=== PATIENT | female | born 1955 | race Caucasian/White ===

== ENCOUNTER 2019-12-02 19:32 | Emergency (ER) | payer OTHER ==
[~2019-12-02] VITALS: Ht 157.5 cm; Wt 101.6 kg
--- OUTSIDE RECORDS SUMMARY | ~2019-12-02 | XMS | Encounter Summary ---
Demographics + + + | Address | [address] | | | [place] [address] | + + + | Home Phone | | + + + | Preferred Language | Unknown | + + + | Marital Status | Single | + + + | Shinto Affiliation | NON | + + + | Race | White | + + + | Ethnic Group | Not or | + + + Author + + + | Author | [facility] | + + + | Organization | [facility] | + + + | Address | Unknown | + + + | Phone | Unavailable | + + + Support + + + + + | Name | Relationship | Address | Phone | + + + + + | Adeel Matthews | ECON | [address] | | | | | [place] | | | | | [address] | | + + + + + Care Team Providers + +------+ + | Care Manager Field Name | Role | Phone | + +------+ + PCP | Unavailable | + +------+ + Encounter Details +--------+ + + + + | Date | Type | Department | Care Team | Description | +--------+ + + + + | 05/05/ | Office | Pulmonary & | Kenzie Sevilla, | | | 2006 | Visit-[facility] | Critical Care | MD | | | | | Medicine at | | | | | | [facility] | | | | | | [address] | | | | | | [address] [facility] | | | | | [facility], [address] Floor | | | | | | [place], [place] | | | | | | [address] | | | | | | [phone] | | | +--------+ + + + + Social History + +-------+ +--------+------+ | Tobacco Use | Types | Packs/Day | Years | Date | | | | | Used | | + +-------+ +--------+------+ | Never Assessed | | | | | + +-------+ +--------+------+ + + + | Sex Assigned at | Date Recorded | | | | + + + | Not on file | | + + + + + + + | Job Start Date | Occupation | Industry | + + + + | Not on file | Not on file | Not on file | + + + + + + + + | Travel History | Travel Start | Travel End | + + + + + + | No recent travel history available. | + + documented as of this encounter Plan of Treatment Not on filedocumented as of this encounter Visit Diagnoses Not on filedocumented in this encounter"
--- OUTSIDE RECORDS SUMMARY | ~2019-12-02 | XMS | Encounter Summary ---
Demographics + + + | Address | [address] | | | [place] [address] | + + + | Home Phone | | + + + | Preferred Language | Unknown | + + + | Marital Status | Single | + + + | Caodaism Affiliation | NON | + + + | Race | White | + + + | Ethnic Group | Not or | + + + Author + + + | Author | [facility] | + + + | Organization | [facility] | + + + | Address | Unknown | + + + | Phone | Unavailable | + + + Support + + + + + | Name | Relationship | Address | Phone | + + + + + | Adeel Matthews | ECON | [address] | | | | | [place] | | | | | [address] | | + + + + + Care Team Providers + +------+ + | Care Laborer Car [place] Name | Role | Phone | + +------+ + PCP | Unavailable | + +------+ + Encounter Details +--------+ + + + + | Date | Type | Department | Care Team | Description | +--------+ + + + + | 05/04/ | Respiratory | Respiratory | Flavia Watt | | | 2006 | Therapy | Therapy [address] [facility] | [phone] | | | | | [address] | | | | | | Mailcode: [id number] | | | | | | [place], [place] | | | | | | [address] | | | | | | [phone] | | | +--------+ + + + [...] Not on filedocumented as of this encounter Procedures + +--------+ + + + | Procedure Name | Priori | Date/Time | Associated Diagnosis | Comments | | | ty | | | | + +--------+ + + + | PULMONARY FUNCTION | Routin | 05/04/2007 | | Results for this | | | e | 3:10 PM | | procedure are in the | | | | PDT | | results section. | + +--------+ + + + documented in this encounter Results RESP CARE PULMONARY FUNCTION (05/04/2007 3:10 PM PDT) + + + + + + | Component | Value | Ref Range | Performed | Pathologist | | | | | At | Signature | + + + + + + | PULMONARY | Spirometry, and DLCO | | [facility] | | | FUNCTION | were | | RESPIRATORY | | | | performed:Spirometry | | THERAPY | | | | results were the | | | | | | following:FVC=3.19FVC% | | | | | | predicted=21UOU7=6.55FEV | | | | | | 1% | | | | | | predicted=98FEV1/FVC=80F | | | | | | EF 25-75=2.56FEF 25-75% | | | | | | predicted=97PEF=5.52PEF% | | | | | | predicted=86DLCO | | | | | | results were the | | | | | | following:Dsb=21.9 | | | | | | ml/min/mmHgDsb% | | | | | | psbmnmahm=374P/VA=4.53D/ | | | | | | VA% predicted=91VA (sb) | | | | | | (L)=4.84VA (sb) (L)% | | | | | | hrzouqpuk=964Pppulbvz | | | | | | for Hb of 14.1 | | | | | | gm/dL.Electronically | | | | | | Signed by: Melissa Malik, | | | | | | VP RESPIRATORY | | | | + + + + + + + + | Specimen | + + | | + + + + + | Narrative | Performed At | + + + | Ordered by an unspecified provider. | [facility] | | | RESPIRATORY | | | THERAPY | + + + + + + + + | Performing | Address | City/State/Zipcode | Phone Number | | Organization | | | | + + + + + | [facility] | [address] | [place], [place] | | | THERAPY | [address] | [address] | | + + + + + | [facility] | [address] | [place], [place] | | | THERAPY | [address] | [address] | | + + + + + documented in this encounter Visit Diagnoses Not on filedocumented in this encounter"
--- OUTSIDE RECORDS SUMMARY | ~2019-12-02 | XMS | Encounter Summary ---
Demographics + + + | Address | [address] | | | [place] [address] | + + + | Home Phone | | + + + | Preferred Language | Unknown | + + + | Marital Status | Single | + + + | Yarsani Affiliation | NON | + + + | Race | White | + + + | Ethnic Group | Not or | + + + Author + + + | Author | [facility] | + + + | Organization | [facility] | + + + | Address | Unknown | + + + | Phone | Unavailable | + + + Support + + + + + | Name | Relationship | Address | Phone | + + + + + | Adeel Matthews | ECON | [address] | | | | | [place] | | | | | [address] | | + + + + + Care Team Providers + +------+ + | Care Groundman Name | Role | Phone | + +------+ + | Froy Daigle MD | PCP | | + +------+ + Encounter Details +--------+ + + + + | Date | Type | Department | Care Team | Description | +--------+ + + + + | 02/03/ | Ancillary | Registration [address] | Kamilah Marte, | | | 2006 | Registratio | [address] Verduz[address] MD | | | | n | [address] Mailcode: [id number] | | | | | | [place], [place] | | | | | | [address] | | | | | | [phone] | | | +--------+ + + + [...]
--- OUTSIDE RECORDS SUMMARY | ~2019-12-02 | XMS | Encounter Summary ---
Demographics + + + | Address | [address] | | | [place] [address] | + + + | Home Phone | | + + + | Preferred Language | Unknown | + + + | Marital Status | Single | + + + | Taoism Affiliation | NON | + + + | Race | White | + + + | Ethnic Group | Not or | + + + Author + + + | Author | [facility] | + + + | Organization | [facility] | + + + | Address | Unknown | + + + | Phone | Unavailable | + + + Support + + + + + | Name | Relationship | Address | Phone | + + + + + | Adeel Matthews | ECON | [address] | | | | | [place] | | | | | [address] | | + + + + + Care Team Providers + +------+ + | Care Health Care Social Worker Name | Role | Phone | + +------+ + PCP | Unavailable | + +------+ + Encounter Details +--------+ + + + + | Date | Type | Department | Care Team | Description | +--------+ + + + + | 07/08/ | Results | Registration [address] | Flavia Watt | | | 2005 | Only | [address] | [phone] | | | | | Rd Mailcode: [id number] | | | | | | [place], [place] | | | | | | [address] | | | | | | [phone] | | | +--------+ + + + [...] as of this encounter Plan of Treatment + +---------+--------+ + + | Name | Type | Priori | Associated Diagnoses | Date/Time | | | | ty | | | + +---------+--------+ + + | CT OUTSIDE FILMS | Imaging | Routin | | 07/08/2006 12:00 AM | | | | e | | PST | + +---------+--------+ + + | GENERAL OUTSIDE | Imaging | Routin | | 07/08/2006 12:00 AM | | FILMS | | e | | PST | + +---------+--------+ + + documented as of this encounter Visit Diagnoses Not on filedocumented in this encounter"
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
--- OUTSIDE RECORDS SUMMARY | ~2019-12-02 | XMS | Encounter Summary ---
Demographics + + + | Address | [address] | | | [place] [address] | + + + | Home Phone | | + + + | Preferred Language | Unknown | + + + | Marital Status | Legally | + + + | Restorationism Affiliation | Unknown | + + + | Race | Unknown | + + + | Ethnic Group | Unknown | + + + Author + + + | Author | [facility] | | | and [place]ana | + + + | Organization | [facility] | | | and Mattana | [...] Team Providers + +------+ + | Care Hot Strip Mill Supervisor Name | Role | Phone | + [...] + | 08/25/ | Office | [facility] | Bismark Osorio | SANTOS (obstructive | | 2012 | Visit | SLEEP DISORDER [address] | MD [address] | sleep apnea) | | | | [address] [place] [address] [place] | (Primary Dx); | | | | [place] [address] | [place] [address] | Delayed sleep phase | | | | [phone] | [phone] | syndrome; REM sleep | | | | | | behavior disorder; | | | | | | Bipolar 1 disorder | | | | | | ([facility]); Excessive | | | | | | sleepiness; Obesity; | | | | | | Rheumatoid | | | | | | arthritis ([facility]); | | | | | | Multiple [...] located on the 1st level of the [facility]. Please park in the Cancer Center/Sleep Center Parking Lot located on the Southwest corner of the [facility], at [address]. Please enter through the glass sliding doors [...] differen t from the original. [facility] [place] [address] Ref: Christopher Finn MD CC: Chief Complaint [...] Concern None Social History Narrative Born in [facility].Lives in [place] in apartment that is safe and quiet. [...] Insomnia Severity Index Insomnia Severity Index 24 [place] Sleepiness Scale Sitting and reading 3 Watching [...]
--- OUTSIDE RECORDS SUMMARY | ~2019-12-02 | XMS | Encounter Summary ---
Demographics + + + | Address | [address] | | | [place] [address] | + + + | Home Phone | | + + + | Preferred Language | Unknown | + + + | Marital Status | Legally | + + + | Confucianism Affiliation | Unknown | + + + | Race | Unknown | + + + | Ethnic Group | Unknown | + + + Author + + + | Author | [facility] | | | and Mattana | + + + | Organization | [facility] | | | and Mattana [...] Team Providers + +------+ + | Care Sheet Rock Installation Helper Name | Role | Phone | + +------+ + PCP | Unavailable | + +------+ + Encounter Details +--------+ + + + + | Date | Type | Department | Care Team | Description | +--------+ + + + + | 06/25/ | Hospital | [facility] | Christopher Finn | | | 2011 - | Encounter | MED CTR XRAY [address] | [place] [address] | | | | | [place] | [address] [place], [place] | | | 06/27/ | | [place] [address] | [address] | | | 2011 | | [phone] | | | +--------+ + + + [...] + + documented as of this encounter Medications at Time of Discharge + + + +---------+ + + | Medication | Sig | Dispensed | Refills | Start | End Date | | | | | | Date | | + + + +---------+ + + | meloxicam (MOBIC) | Take 15 mg by mouth. | | 0 | 04/24/20 | | | 15 mg tablet | | | | 12 | | + + + +---------+ + + | meloxicam (MOBIC) | Take 15 mg by mouth | | 0 | 04/24/20 | | | 15 mg tablet | Daily. | | | 12 | | + + + +---------+ + + | aspirin 325 mg | Take 325 mg by mouth | | 0 | 04/24/20 | | | tablet | Daily. | | | 12 | 3 | + + + +---------+ + + | famotidine | Take 20 mg by mouth | | 0 | 04/24/20 | | | (PEPCID) 20 mg | 2 times daily. | | | 12 | 3 | | tablet | | | | | | + + + +---------+ + + | levothyroxine | Take 50 mcg by mouth | | 0 | 04/24/20 | | | (SYNTHROID, | Daily. | | | 12 | 3 | | LEVOTHROID) 50 mcg | | | | | | | tablet | | | | | | + + + +---------+ + + | metoprolol | Take 25 mg by mouth | | 0 | 09/05/19 | | | tartrate (LOPRESSOR) | Daily. | | | 11 | 3 | | 25 mg tablet | | | | | | + + + +---------+ + + | PARoxetine (PAXIL) | Take 20 mg by mouth | | 0 | 04/24/20 | | | 20 mg tablet | Daily. | | | 12 | 3 | + + + +---------+ + + | Potassium Chloride | CR-TABS | | 0 | 04/24/20 | | | (KLOR-CON 10 PO) | | | | 12 | 3 | + + + +---------+ + + | trazodone | Take half a tablet | | 0 | 04/24/20 | | | (DESYREL) 150 MG | by mouth twice | | | 12 | 3 | | tablet | daily. | | | | | + + + +---------+ + + documented as of this encounter Plan of Treatment Not on filedocumented as of this encounter Procedures + +--------+ + + + | Procedure Name | Priori | Date/Time | Associated Diagnosis | Comments | | | ty | | | | + +--------+ + + + | CT CHEST W CONTRAST | Routin | 06/26/2012 | | Results for this | | | e | 12:47 PM | | procedure are in the | | | | PST | | results section. | + +--------+ + + + documented in this encounter Results CT Chest w Contrast (06/26/2012 12:47 PM PST) + + | Specimen | + + | | + + + + + | Narrative | Performed At | + + + | [facility] | [place] | | Department [address] [facility] | | [ rep [address]] [ rep [facility] | | st zip] Signed | - IMAGING | | | | | Patient Name: KATHY MOYA Physician: | | | TERR.20 : 1955 Age: 57 Sex: F Unit #: [id number] | | | Exam Date: 06/25/12 Location: [facility] | | | Report #: [id number] Page: | | | %(RAD)RES..mtdd.print.filter("pg") of %(RAD) | | | RES..mtdd.print.filter("tpg") | | | | | | Accession Number: [id number] | | | CT SCAN OF THE CHEST, 06/26/2012 CLINICAL HISTORY: PREVIOUS | | | CHEST X-RAY DEMONSTRATED RIGHT LUNG NODULE, SMOKER. | | | COMPARISON: Previous chest x-rays from 01/13/2011 and 11/21/2010. | | | PROTOCOL: Axial CT images of the chest after intravenous | | | contrast. FINDINGS: Neck base is normal. | | | There is mild emphysema involving the bilateral lungs. No nodule is | | | seen in the bilateral lungs. The heart is of normal size. | | | Minimal coronary artery calcifications are seen. There is minimal | | | atherosclerosis of the aorta. The pulmonary arteries and SVC are | | | unremarkable. There is a moderately prominent lymph node in | | | the paratracheal region that measures 0.9 cm. A moderately enlarged | | | 1.2 cm lymph node is present in the right precarinal region. The dane | | | and axilla are normal. The trachea and esophagus are normal. | | | There are no acute osseous abnormalities. Small osteophytes are | | | present at multiple levels of the thoracic spine. | | | Cholecystectomy clips are visualized. IMPRESSION: 1. | | | MILD EMPHYSEMA OF THE BILATERAL LUNGS. NO OBVIOUS LUNG NODULES ARE | | | SEEN. ATTEMPT WILL BE MADE TO OBTAIN THE PATIENT'S PREVIOUS CHEST | | | X-RAY THAT DEMONSTRATED THE NODULE. AT THAT TIME, AN ADDENDUM WILL | | | BE MADE. 2. BORDERLINE LYMPH NODES INVOLVING THE | | | MEDIASTINUM, NONSPECIFIC. COMMENT: This information was | | | conveyed to the office of Dr. Christopher Finn. | | | <<Signature on File>> | | | Aakash | | | MD Ronen06/27/12 0150 <Electronically signed by Aakash Hardwick MD> | | | Aakash Hardwick MD 06/26/12 1247 Boat Crew Deck Hand: | | | Adrianne Nguyen06/26/12 1308 Christopher Finn MD | | | | | + + + + + + + + | Performing | Address | City/State/Zipcode | Phone Number | | Organization | | | | + + + + + | [facility] | [address] | [place] | [phone] | | [facility] | | [address] | | | - IMAGING | | | | + + + + + documented in this encounter Visit Diagnoses Not on filedocumented in this encounter
--- OUTSIDE RECORDS SUMMARY | ~2019-12-02 | XMS | Encounter Summary ---
Demographics + + + | Address | [address] | | | [place] [address] | + + + | Home Phone | | + + + | Preferred Language | Unknown | + + + | Marital Status | Legally | + + + | Episcopal Affiliation | Unknown | + + + | Race | Unknown | + + + | Ethnic Group | Unknown | + + + Author + + + | Author | [facility] | | | and [place] | + + + | Organization | [facility] | | | and [place] [...] Team Providers + +------+ + | Care Plastics Repairer Name | Role | Phone | + +------+ + | Froy Daigle | PCP | | | MD | | | + +------+ + Reason for Visit +--------+ + | Reason | Comments | +--------+ + | Apnea | | +--------+ + Encounter Details +--------+---------+ + + + | Date | Type | Department | Care Team | Description | +--------+---------+ + + + | 12/14/ | Office | [facility] | Chris Guallpa PA | SANTOS on CPAP (Primary | | 2014 | Visit | SLEEP DISORDER [address] | [address] | Dx) | | | | [address] | [place] | | | | | [place] [address] | [address] | | | | | [phone] | | | +--------+---------+ + + + Social History [...] + + + | Blood Pressure | 102/76 | 12/14/2013 10:24 AM | | | | | PDT | | + + + + + | Pulse | 89 | 12/14/2013 10:24 AM | | | | | PDT | | + + + + + | Temperature | - | - | | + + + + + | Respiratory Rate | 16 | 12/14/2013 10:24 AM | | | | | PDT | | + + + + + | Oxygen Saturation | 99% | 12/14/2013 10:24 AM | | | | | PDT | | + + + + + | Inhaled Oxygen | - | - | | | Concentration | | | | + + + + + | Weight | 114.3 kg (252 lb) | 12/14/2013 10:24 AM | | | | | PDT | | + + + + + | Height | - | - | | + + + + + | Body Mass Index | 44.64 | 08/25/2012 1:53 PM | | | | | PST | | + + + + + documented in this encounter Progress Notes Vee Dowling, Master of Arts - 12/14/2013 10:22 AM PDTFormatting of this note might be di fferent from the original. 12/14/13 1000 Bryant Depression Inventory-II Depression Score 3 - Minimal depression Insomnia Severity Index Insomnia Severity Index 4 [place] Sleepiness Scale Sitting and reading 1 Watching TV 1 Sitting, inactive in a public place (e.g. a theatre or a meeting) 1 As a passenger in a car for an hour without a break 0 Lying down to rest in the afternoon when circumstances permit 2 Sitting and talking to someone 0 Sitting quietly after a lunch without alcohol 1 In a car, while stopped for a few minutes in traffic 0 Total score 6 SF-36v2 Score PF 42.3 RP 49.51 BP 51.13 GH 48.17 VT 55.21 SF 45.94 RE 55.88 MH 50.01 PCS 45.51 MCS 54.44 Chris Billingsley PA - 10:06 AM PDT Subjective: Patient ID: Kathy Moya is a 58 y.o. female. HPI last office visit was: 12/01/2012 date of polysomnography: 09/17/2012 AHI: 14.0 RDI: 16.6 O2%: 76% with 11.7 minutes below 88% Machine type: Respironics REMstar Pro with C flex with nasal pillows obtained from: [facility] [place] pressure is: 5-15 cm 95%: cm maxium: cm CPAP download shows CPAP useage # nights: average usage (all nights): 10:08 average usage (nights used): 10:08 AHI: n/a Kathy comes in for CPAP compliance. She is doing very well with her compliance. She yaakov nues to feels much more rested and has noticed that she has had more energy during the day. Her only concern is that she has not replaced any of her equipment because her insurance do es not cover durable medical equipment. She says that her mask needs to be replaced and she is hopeful her insurance will now cover a new mask. I have discussed the download and results of the paperwork in detail. She has improved in all categories, with no areas of concern. The download confirms that she is wearing it nigh tly. Review of Systems Objective: Physical Exam Assessment: Problem #1: OBSTRUCTIVE SLEEP APNEA (327.23) This is well controlled with CPAP. Her CPAP compliance is going well. Plan: She is to continue with CPAP indefinitely. I have recommended that she touch base with her medical supplier twice per year to ensure that her equipment is satisfactory. I will follow up again in 1 year, sooner prn. At that time we will reassess with all appro piate paperwork. Fifteen minutes were spent [id number], with the majority of time spent i n counseling. Chris Guallpa PA-C cc: Dr. Yuridia Finn documented in this enco unter Plan of Treatment Not on filedocumented as of this encounter Visit Diagnoses + + | Diagnosis | + + | SANTOS on CPAP - Primary Obstructive sleep apnea (adult) (pediatric) | + + documented in this encounter"
--- OUTSIDE RECORDS SUMMARY | ~2019-12-02 | XMS | Encounter Summary ---
Demographics + + + | Address | [address] | | | [place] [address] | + + + | Home Phone | | + + + | Preferred Language | Unknown | + + + | Marital Status | Single | + + + | Yazdanism Affiliation | NON | + + + | Race | White | + + + | Ethnic Group | Not or | + + + Author + + + | Author | [facility] | + + + | Organization | [facility] | + + + | Address | Unknown | + + + | Phone | Unavailable | + + + Support + + + + + | Name | Relationship | Address | Phone | + + + + + | Adeel Matthews | ECON | [address] | | | | | [place] | | | | | [address] | | + + + + + Care Team Providers + +------+ + | Care Ivory Carver Name | Role | Phone | + +------+ + PCP | Unavailable | + +------+ + Encounter Details +--------+ + + + + | Date | Type | Department | Care Team | Description | +--------+ + + + + | 10/17/ | Office | Allergy Clinic at | Report, Outpatient | Progress Note | | 2006 | Visit-Trans | [facility] [address] | Consultation | | | | [place] | Eugene Maldonado | | | | | | Darin Lugo | | | | | | [facility], [address] [place] [address] | | | | | | [place], [place] | | | | | | [address] | | | | | | [phone] | | | +--------+ + + + [...] + + documented as of this encounter Progress Notes Interface, Dial Maker In - 11/18/2006 2:33 AM PDT [id number] NITA Blair [id number] Referred From and Faxed To: Froy Daigle M.D. Referred To: Akbar Mendoza M.D. Consulting Physician: Akbar Mendoza M.D. Consultation Date: 10/17/2006 Referring Physician: Froy Daigle M.D. Pulmonary Clinic Consult Note Reason For Requested Consultation: Pulmonary nodule. History of Present Illness: Kathy Moya is a 51-year-old woman referred from [place], [place], for evaluation of a cavitating right upper lobe lung nodule. She presented to the [facility] in June 2006 with pleuritic left-sided chest pain and underwent a CT angio of the chest which was negative for pulmonary embolism but was found to have a 1.4 cm x 1.7 cm round nodule in the right upper lobe posterior segment with presence of cavitation. Additionally, there was presence of contralateral aorticopulmonary window adenopathy measuring 2.5 cm x 2.1 cm. Since then her evaluation has included a 3 sputum cultures which have been insufficient, and she was subsequently referred here for further evaluation. She denies symptoms of persistent chest pain. She states that she has no exertional dyspnea, no exertional chest pain, and that the pain that she initially had has resolved after she started taking Pepcid. Additionally, she denies cough, sputum production, or hemoptysis. When she attempted to produce sputum for the samples, she only produced saliva. She was treated in early July 2006 with 10 days of levofloxacin. Her only symptoms following this has been anxiety associated with the possibility of a malignant diagnosis. Notably, she does not have presence of any night sweats. She has not lost any weight. She denies any lower extremity edema. She denies any rashes. She denies any joint pain. She does not have any nausea, vomiting, or diarrhea. Past Medical History: 1. Hysterectomy for cervical cancer. No prior radiation. No prior chemotherapy. Cervix was completely removed and has not had any Pap smears. Additionally, had bilateral salpingo-oophorectomy in a second operation following the hysterectomy. 2. Cholecystectomy. 3. Knee arthroscopy. 4. Possible venous thrombosis, never previously on warfarin. 5. Possible TB exposure. She defined as exposure to a young man in a basement apartment in the same apartment complex she was living in [place], [place], who had tuberculosis. 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 Her chest x-rays during that time were all reportedly negative. Medications: 1. Aspirin 81 mg, started since July 08, 2006. 2. Pepcid. 3. RapidSlim. Allergies: 1. PENICILLIN WHICH CAUSES A RASH AND ANAPHYLAXIS WHICH SHE HAD A CHILD. 2. CODEINE WHICH CAUSES NAUSEA AND VOMITING. 3. NOVOCAIN, UNKNOWN REACTION. Social History: She was born in [place]. She subsequently lived in [facility] and [place] and [place], [place]. Additionally, she spent time in [place], [place] in [facility] for several months. Exposure: Tuberculosis exposure as described above, denies any IV drug use ever, did smoke marijuana in the past but has not for 30 years, never been in shelter. She does have a brother who has been involved with methamphetamine production and IV drug use who she has seen recently but has not lived with. There is no travel outside the country. There is no exposure to any immigrants in her living environment. She started smoking at age 15. She now takes 4 days to complete a pack of cigarettes. She has quit in the past in early 1970s. She denies any alcohol use, denies any other drug use. She currently lives with her mom, step dad, and a boyfriend in a house in [place]. Family History: Mother with thyroid cancer at age 62, father who is healthy. She has 15 siblings. There are no history of malignancies, cardiovascular disease, or inflammatory bowel disease. She has 2 sons one who lives in [place] and one who lives in [place]. 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 She is not currently working. Review of Systems: All other systems are negative except as described above. Physical Examination: Temperature 98.8, blood pressure 130/90, pulse 99, respirations 20, and oxygen saturation 97% on room air. Her weight is 234 pounds, height is 62.5 inches for a body mass index of 42.5. General: An obese woman in no acute distress wearing a tuberculosis fitting mask. HEENT: Pupils are equal, round, and reactive to light. There are no oral lesions. There is no conjunctival erythema. Pulmonary: Normal breath sounds bilaterally with no abnormal breath sounds and no extra sounds. Cardiovascular: Regular rate and rhythm with no murmurs, rubs, or gallops. Abdomen: Soft and nontender. Positive bowel sounds. Lymph Nodes: There is no palpable lymphadenopathy in the cervical, axillary, or inguinal area. Dermatologic: There are no rashes. Extremities: There is no clubbing, there is no cyanosis, and there are no edema. Musculoskeletal: There are no red, hot, or swollen joints. Laboratory Data: Basic metabolic panel from the [facility] on July 08, 2006, is notable for a bicarbonate of 27, BUN and creatinine of 13.3 and 0.9, normal LFTs with the exception of a protein of 8.0 and albumin of 4.4. Her troponin was negative at that time. White blood cell count slightly elevated at 12.1, hematocrit of 44.5 with an MCV of 86.8, and platelets 267. Differential and a white blood cell count showed 73 neutrophils, 20 lymphocytes, 4 monocytes, 1 eosinophil, and 1 basophil. Radiographic Data: A chest x-ray, PA and lateral as well as a CT angio from July 08, 2006, done at [facility] was interpreted with Dr. Link Armijo and Dr. Akbar Mendoza as well as a chest x-ray from today. There is presence of a cavitary right upper lobe posterior segment lung nodule with a thin wall. No satellite lesions. No ipsilateral adenopathy in the presence of a contralateral aorticopulmonary window node. There is no ground glass opacification and no pneumothorax. Taken together, the likelihood that this represents a malignant lesion is deemed to be very low based on the thinness of the wall, the lack of surrounding tissue edema around the nodule, and the contralateral adenopathy. In comparison of today's chest x-ray with prior chest x-rays, there appears to be no radiographic change. Pulmonary Function Tests: There is no pulmonary function data. Assessment and Plan: 1. Right upper lobe cavitary pulmonary nodule. The most likely etiologic agent is fungal infection. Statistically, coccidioidomycosis would be the most likely. Based on the radiographic appearance, the presence of malignancy is thought to be very low. Similarly based on her lack of systemic symptoms, cough, and sputum production, and 3-month progression without any further presence of mycobacterium either tuberculosis or nontuberculosis, mycobacterium is deemed to be less likely. There is no evidence to support a cardiovascular disease as an etiology for this cavitary lung lesion. Similarly, there is no evidence to support a vasculitis. Further diagnostic workup for this lesion could include obtaining a tissue sample. The ability to obtain tissue from CT-guided biopsy is somewhat difficult. We discussed this with the radiologist based on the fact that this nodule is 10 cm from the surface of her skin and is relatively small, it would not be a straightforward biopsy. Similarly, this lesion could not be reached by a bronchoscopy. Finally, we do not feel that there is an indication for a surgical resection of this at this time. Given the high pretest probability for coccidioidomycosis, given the presentation, the radiographic stability, and her positive exposure history, this is deemed to be the most likely diagnosis. We cannot completely rule out the possibility of a mycobacterial infection. However, we would favor obtaining a complement fixation serology for coccidioidomycosis and not empirically treating for coccidioidomycosis at this point given the fact that she is asymptomatic. She should be followed with a chest x-ray in 3 months and an appointment in our clinic, at which point, we can evaluate this further. Finally, we will obtain an HIV test, although she does not describe any risk factors, the test is indicated at this point. 2. Smoking cessation. I discussed with the patient the options indicating replacement, a bupropion and varenicline. She has been discussing these options with her primary care physician as well and states that the varenicline is too expensive. I did imply that part of her smoking cessation could be achieved without nicotine replacement given the fact that she likely has low amount of physiologic dependence. We would consider the use of Wellbutrin but will defer this decision to the patient's primary care physician. Plan: 1. Coccidioidomycosis antibody by complement fixation. 2. Serum HIV test. 3. Return to Pulmonary Clinic in 3 months with a PA and lateral chest x-ray prior to the appointment. This patient was seen and staffed with my attending physician Dr. Akbar Mendoza. Emelina Wilder M.D. I examined the patient. I agree with Dr. Wilder's assessment and plan. Akbar Mendoza M.D. MM / BEREKET [id number] / [id number] / [id number] / cc: Froy Daigle M.D. [address] [place] [id number] Electronically signed by Akbar Mendoza 11-14-2006 04:39:06 PM documented in this encounter Plan of Treatment Not on filedocumented as of this encounter Visit Diagnoses Not on filedocumented in this encounter"
--- OUTSIDE RECORDS SUMMARY | ~2019-12-02 | XMS | Encounter Summary ---
Demographics + + + | Address | [address] | | | [place] [address] | + + + | Home Phone | | + + + | Preferred Language | Unknown | + + + | Marital Status | Single | + + + | Congregational Affiliation | NON | + + + | Race | White | + + + | Ethnic Group | Not or | + + + Author + + + | Author | [facility] | + + + | Organization | [facility] | + + + | Address | Unknown | + + + | Phone | Unavailable | + + + Support + + + + + | Name | Relationship | Address | Phone | + + + + + | Adeel Matthews | ECON | [address] | | | | | [place] | | | | | [address] | | + + + + + Care Team Providers + +------+ + | Care Pile Header Name | Role | Phone | + +------+ + PCP | Unavailable | + +------+ + Encounter Details +--------+ + + + + | Date | Type | Department | Care Team | Description | +--------+ + + + + | 02/03/ | Results | Pulmonary | Kamilah Marte, | | | 2006 | Only | Interstitial Lung | MD | | | | | Disease [address] | | | | | | [address] | | | | | | Mailcode: [id number] | | | | | | [facility] | | | | | | [address] [facility] [place] | | | | | | [address] | | | | | | [phone] | | | +--------+ + + + [...] +--------+ + + + | CT CHEST WO CONTRAST | Routin | 05/04/2007 | | Results for this | | | e | 3:15 PM | | procedure are in the | | | | PDT | | results section. | + +--------+ + + + | X-RAY CHEST 2 VIEW | Routin | 02/03/2007 | | Results for this | | | e | 4:14 PM | | procedure are in the | | | | PDT | | results section. | + +--------+ + + + documented in this encounter Results CT CHEST WO CONTRAST (05/04/2007 3:15 PM PDT) + + + + + + | Component | Value | Ref Range | Performed | Pathologist | | | | | At | Signature | + + + + + + | CT CHEST WO | Radiologist 1: ESTRELLITA | | | | | CONTRAST | Gilmer PEREZ-Radiologist | | | | | | 2: HAMLET PARHAM, | | | | | | GilmerEXAM: CT of the | | | | | | chest without contrast. | | | | | | HISTORY: Follow-up | | | | | | pulmonary nodule. | | | | | | COMPARISON: Outside CT | | | | | | dated 07/08/06. | | | | | | TECHNIQUE: Helical | | | | | | imaging was performed | | | | | | through the chest with | | | | | | 5mm sections generated | | | | | | at 2.5 mm intervals | | | | | | without contrast. | | | | | | Lungalgorithm images | | | | | | are provided. FINDINGS: | | | | | | There is a 1 cm nodular | | | | | | opacity in the posterior | | | | | | aspect of theright | | | | | | upper lobe with adjacent | | | | | | linear scarring in | | | | | | parallel withthe major | | | | | | fissure at the site of | | | | | | previously identified | | | | | | cavitarynodule. No new | | | | | | pulmonary mass, nodule, | | | | | | or consolidation | | | | | | isidentified. There is | | | | | | stable soft tissue in | | | | | | nodule in the AP window, | | | | | | presumablymild | | | | | | adenopathy. No other | | | | | | mediastinal or hilar | | | | | | adenopathy isseen. There | | | | | | is lipomatous | | | | | | hypertrophy of the | | | | | | interatrial | | | | | | septum,slightly greater | | | | | | than expected. There | | | | | | is also question of | | | | | | anatrial septal defect | | | | | | with linear blood/soft | | | | | | tissue | | | | | | attenuationopacity | | | | | | traversing the septum. | | | | | | There is an old healed | | | | | | right lateral fifth rib | | | | | | fracture. Thechest was | | | | | | otherwise unremarkable. | | | | | | There has been | | | | | | priorcholecystectomy. | | | | | | There is diffuse | | | | | | hepatic steatosis. | | | | | | Limitedevaluation of the | | | | | | upper abdomen is | | | | | | otherwise | | | | | | unremarkable.IMPRESSION: | | | | | | 1. 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 2. 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 3. | | | | | | Possible atrial septal | | | | | | defect. 4. Hepatic | | | | | | steatosis. | | | | + + + + + + + + | Specimen | + + | | + + + +---------+ + + | Performing | Address | City/State/Zipcode | Phone Number | | Organization | | | | + +---------+ + + | [facility] DEPARTMENT OF | | | | | RADIOLOGY | | | | + +---------+ + + CHEST 2 VIEW (02/03/2007 4:14 PM PDT) + + + + + + | Component | Value | Ref Range | Performed | Pathologist | | | | | At | Signature | + + + + + + | CHEST, 2 | Radiologist 1: KB, | | | | | [place] | MD JEIMY-Radiologist 2: | | | | | STEREO | RIGO ALEXIS, | | | | | | M.D.EXAM: PA and | | | | | | lateral chest. | | | | | | COMPARISON: 10/17/06 and | | | | | | outside CT 07/08/06. | | | | | | HISTORY: Right upper | | | | | | lobe lung cavitary | | | | | | nodule. FINDINGS: The | | | | | | cardiac and mediastinal | | | | | | contours are | | | | | | normal.There is a round | | | | | | opacity in the location | | | | | | of the previously | | | | | | notedcavitary nodule. | | | | | | This has not changed | | | | | | significantly in size | | | | | | ofthe cavitary | | | | | | appearance has resolved. | | | | | | There is no | | | | | | pleuraleffusion or | | | | | | pneumothorax. The osseus | | | | | | structures are | | | | | | unremarkable.IMPRESSION: | | | | | | Resolving right upper | | | | | | lobe cavitary nodule. | | | | | | Continued | | | | | | follow-upsuggested to | | | | | | document continued | | | | | | resolution or stability. | | | | | | No newnodule | | | | + + + + + + + + | Specimen | + + | | + + + +---------+ + + | Performing | Address | City/State/Zipcode | Phone Number | | Organization | | | | + +---------+ + + | [place] DEPARTMENT OF | | | | | RADIOLOGY | | | | + +---------+ + + documented in this encounter Visit Diagnoses Not on filedocumented in this encounter"
--- OUTSIDE RECORDS SUMMARY | ~2019-12-02 | XMS | Encounter Summary ---
Demographics + + + | Address | [address] | | | [place] [address] | + + + | Home Phone [...] + + + | Author | [facility] | + + + | Organization | [facility] | + + + | Address | Unknown | + + + | Phone | Unavailable | + + + Support + + + + + | Name | Relationship | Address | Phone | + + + + + | Adeel Matthews | ECON | [address] | | | | | [place] | | | | | [address] | | + + + + + Care Team Providers + +------+ + | Care Battery Container Tester Aluminum Name | Role | Phone | + +------+ + | Froy Daigle MD | PCP | | + +------+ + Encounter Details +--------+ + + + + | Date | Type | Department | Care Team | Description | +--------+ + + + + | 05/04/ | Ancillary | Registration [address] | Kamilah Marte, | | | 2006 | Registratio | JULIANA Verduzco MD | | | | n | Misael Mailcode: [id number] | | | | | | [place], [place] | | | | | | [address] | | | | | | [phone] | | | +--------+ + + + [...]
--- OUTSIDE RECORDS SUMMARY | ~2019-12-02 | XMS | Encounter Summary ---
Demographics + + + | Address | [address] | | | [place] [address] | + + + | Home Phone | | + + + | Preferred Language | Unknown | + + + | Marital Status | Legally | + + + | Nondenominational Affiliation | Unknown | + + + | Race | Unknown | + + + | Ethnic Group | Unknown | + + + Author + + + | Author | [facility] | | | and Mattana | + + + | Organization | [facility] | | | and Mattana [...] Team Providers + +------+ + | Care Dental Mold Maker Name | Role | Phone | + +------+ + PCP | Unavailable | + +------+ + Encounter Details +--------+ + + + + | Date | Type | Department | Care Team | Description | +--------+ + + + + | 04/23/ | Abstract | [facility] | DATA [facility]IGRATION [facility]BIE | | | 2011 | | Conversion Location | SR | | | | | [address] | | | | | | [place], [place] | | | | | | [address] | | | | | | [phone] | | | +--------+ + + + [...] + + + | Blood Pressure | 100/60 | 06/04/2011 12:00 AM | | | | | PDT | | + + + + + | Pulse | - | - | | + + + + + | Temperature | - | - | | + + + + + | Respiratory Rate | - | - | | + + + + + | Oxygen Saturation | - | - | | + + + + + | Inhaled Oxygen | - | - | | | Concentration | | | | + + + + + | Weight | 92.5 kg (204 lb) | 06/04/2011 12:00 AM | | | | | PDT | | + + + + + | Height | 160 cm (5' 3") | 03/23/2010 12:00 AM | | | | | PDT | | + + + + + | Body Mass Index | 36.14 | 03/23/2010 12:00 AM | | | | | PDT | | + + + + + documented in this encounter Plan of Treatment Not on filedocumented as of this encounter Procedures + +--------+ + + + | Procedure Name | Priori | Date/Time | Associated Diagnosis | Comments | | | ty | | | | + +--------+ + + + | ENDOSCOPY, COLON, | Routin | 09/28/2010 | | Results for this | | DIAGNOSTIC | e | 12:00 AM | | procedure are in the | | | | PST | | results section. | + +--------+ + + + documented in this encounter Results ENDOSCOPY, COLON, DIAGNOSTIC (09/28/2010 12:00 AM PST) + + | Specimen | + + | | + + + + + | Narrative | Performed At | + + + | | | + + + documented in this encounter Visit Diagnoses Not on filedocumented in this encounter
--- OUTSIDE RECORDS SUMMARY | ~2019-12-02 | XMS | Encounter Summary ---
Demographics + + + | Address | [address] | | | [place] [address] | + + + | Home Phone | | + + + | Preferred Language | Unknown | + + + | Marital Status | Single | + + + | Presybeterian Affiliation | NON | + + + | Race | White | + + + | Ethnic Group | Not or | + + + Author + + + | Author | [facility] | + + + | Organization | [facility] | + + + | Address | Unknown | + + + | Phone | Unavailable | + + + Support + + + + + | Name | Relationship | Address | Phone | + + + + + | Adeel Matthews | ECON | [address] | | | | | [place] | | | | | [address] | | + + + + + Care Team Providers + +------+ + | Care Glass Scullion Name | Role | Phone | + +------+ + | Froy Daigle MD | PCP | | + +------+ + Encounter Details +--------+ + + + + | Date | Type | Department | Care Team | Description | +--------+ + + + + | 04/22/ | Organ Tuner | Pulmonary & | Dawson Almanzar, | Pulmonary Nodule | | 2007 | | Critical Care | | (Primary Dx) | | | | Medicine at | | | | | | [facility] | | | | | | [address] | | | | | | [address] [facility] | | | | | | [facility], 3rd Floor | | | | | | [place], [place] | | | | | | [address] | | | | | | [phone] | | | +--------+ + + + [...] + | Diagnosis | + + | Pulmonary nodule - Primary Other diseases of lung, not elsewhere classified | + + documented in this encounter"
--- OUTSIDE RECORDS SUMMARY | ~2019-12-02 | XMS | Encounter Summary ---
Demographics + + + | Address | [address] | | | [place] [address] | + + + | Home Phone | | + + + | Preferred Language | Unknown | + + + | Marital Status | Single | + + + | Jew Affiliation | NON | + + + | Race | White | + + + | Ethnic Group | Not or | + + + Author + + + | Author | [facility] | + + + | Organization | [facility] | + + + | Address | Unknown | + + + | Phone | Unavailable | + + + Support + + + + + | Name | Relationship | Address | Phone | + + + + + | Adeel Matthews | ECON | [address] | | | | | [place] | | | | | [address] | | + + + + + Care Team Providers + +------+ + | Care Reel Slitter Name | Role | Phone | + [...] | | | | | | [address] [facility] [place] | | | | | | [address] | | | | | | [phone] | | | +--------+ + + + [...] | | + +---------+ + + | [facility] DEPARTMENT OF | | | | | [...]
--- OUTSIDE RECORDS SUMMARY | ~2019-12-02 | XMS | Encounter Summary ---
Demographics + + + | Address | [address] | | | [place] [address] | + + + | Home Phone | | + + + | Preferred Language | Unknown | + + + | Marital Status | Legally | + + + | Mu-Ism Affiliation | Unknown | + + + | Race | Unknown | + + + | Ethnic Group | Unknown | + + + Author + + + | Author | [facility] | | | and [place] | + + + | Organization | [facility] | | | and Mattana [...] Team Providers + +------+ + | Care Strategic Planning Specialist Name | Role | Phone | + +------+ + | Christopher Finn MD | PCP | | + +------+ + Reason for Visit + + + | Reason | Comments | + + + | Follow-up | 2 month with PW | + + + Encounter Details +--------+---------+ + + + | Date | Type | Department | Care Team | Description | +--------+---------+ + + + | 11/30/ | Office | [facility] | Chris Guallpa PA | SANTOS on CPAP (Primary | | 2012 | Visit | SLEEP DISORDER [address] | [address] | Dx) | | | | [address] | [place] | | | | | [place] [address] | [address] | | | | | [phone] | | | +--------+---------+ + + + [...] + + + | Blood Pressure | 118/74 | 11/30/2012 11:27 AM | | | | | PDT | | + + + + + | Pulse | 71 | 11/30/2012 11:27 AM | | | | | PDT | | + + + + + | Temperature | - | - | | + + + + + | Respiratory Rate | 16 | 11/30/2012 11:27 AM | | | | | PDT | | + + + + + | Oxygen Saturation | 97% | 11/30/2012 11:27 AM | | | | | PDT | | + + + + + | Inhaled Oxygen | - | - | | | Concentration | | | | + + + + + | Weight | 102.2 kg (225 lb 4.8 | 11/30/2012 11:27 AM | | | | oz) | PDT | | + + + + + | Height | - | - | | + + + + + | Body Mass Index | 39.91 | 08/25/2012 1:53 PM | | | | | PST | | + + + + + documented in this encounter Progress Notes Franchesca Solorio - 11/30/2012 11:25 AM PDT 11/30/12 [address] Depression Inventory-II Depression Score 2 - Minimal depression Insomnia Severity Index Insomnia Severity Index 7 [place] Sleepiness Scale Sitting and reading 1 Watching TV 0 Sitting, inactive in a public place (e.g. a theatre or a meeting) 1 As a passenger in a car for an hour without a break 1 Lying down to rest in the afternoon when circumstances permit 3 Sitting and talking to someone 0 Sitting quietly after a lunch without alcohol 1 In a car, while stopped for a few minutes in traffic 0 Total score 7 SF-36v2 Score PF 44.41 RP 54.4 BP 37.18 GH 55.32 VT 55.21 SF 40.49 RE 36.44 MH 44.38 PCS 50.5 MCS 41.96 Chris Billingsley PA - 11:21 AM PDT Subjective: Patient ID: Kathy Moya is a 57 y.o. female. HPI last office visit was: 09/30/2012 date of polysomnography: 09/17/2012 AHI: 14.0 RDI: 16.6 O2%: 76% with 11.7 minutes below 88% Machine type: Respironics REMstar Pro with C flex with nasal pillows obtained from: [facility] pressure is: 5-15 cm 95%: cm maxium: cm CPAP download shows CPAP useage # nights: 4180 average usage (all nights): 0:10 average usage (nights used): 7:33 AHI: n/a Kathy comes in for CPAP compliance. She is doing very well with her compliance. She yaakov nues to feels much more rested and has noticed that she has had more energy during the day. She is no longer using a ResMed S9 because her insurance would not cover durable medical eq uipment. She is using her friends old Respironics REMstar Pro with C flex with Kathy's pres sure settings. She is very excited to continue with her CPAP. I have discussed the download and results of the paperwork in detail. She has improved in all categories, with no areas of concern. The download shows that she has worn it each of t he last four nights. We discussed the importance of cleaning her equipment regularly and replacing it when neces scott. Review of Systems Objective: Physical Exam Assessment: [...] appro piate paperwork. Fifteen minutes were spent jeep-sm-[id number], with the majority of time spent i [...]
--- OUTSIDE RECORDS SUMMARY | ~2019-12-02 | XMS | Encounter Summary ---
Demographics + + + | Address | [address] | | | [place] [address] | + + + | Home Phone | | + + + | Preferred Language | Unknown | + + + | Marital Status | Legally | + + + | Rastafarian Affiliation | Unknown | + + + | Race | Unknown | + + + | Ethnic Group | Unknown | + + + Author + + + | Author | [facility] | | | and [place] | + + + | Organization | [facility] | | | and Mattana [...] Team Providers + +------+ + | Care Container Washer Machine Name | Role | Phone | + +------+ + | Christopher Finn MD | PCP | | + +------+ + Reason for Visit +--------+ + | Reason | Comments | +--------+ + | Apnea | | +--------+ + Encounter Details +--------+---------+ + + + | Date | Type | Department | Care Team | Description | +--------+---------+ + + + | 02/20/ | Office | [facility] | Chris Gualpla PA | SANTOS on CPAP (Primary | | 2012 | Visit | SLEEP DISORDER [address] | [address] | Dx) | | | | [address] | [place] | | | | | [place] [address] | [address] | | | | | [phone] | | | +--------+---------+ + + + [...] + + + | Blood Pressure | 114/72 | 09/30/2012 9:50 AM | | | | | PST | | + + + + + | Pulse | 74 | 09/30/2012 9:50 AM | | | | | PST | | + + + + + | Temperature | - | - | | + + + + + | Respiratory Rate | 16 | 09/30/2012 9:50 AM | | | | | PST | | + + + + + | Oxygen Saturation | - | - | | + + + + + | Inhaled Oxygen | - | - | | | Concentration | | | | + + + + + | Weight | 104.5 kg (230 lb 6.4 | 09/30/2012 9:50 AM | | | | oz) | PST | | + + + + + | Height | - | - | | + + + + + | Body Mass Index | 40.81 | 08/25/2012 1:53 PM | | | | | PST | | + + + + + documented in this encounter Progress Notes Chris Guallpa PA - 09/30/2012 10:01 AM PST Subjective: Patient ID: Kathy Moya is a 57 y.o. female. HPI last office visit was: 09/24/2012 date of polysomnography: 09/17/2012 AHI: 14.0 RDI: 16.6 O2%: 76% with 11.7 minutes below 88% Machine type: ResMed S9 with nasal pillows obtained from: [facility] pressure is: 5-15 cm 95%: 8.0 cm maxium: 10.3 cm CPAP download shows CPAP useage # nights: 5/6 average usage (all nights): 4:25 average usage (nights used): 5:18 Kathy comes in for CPAP compliance. She is doing very well with her compliance. She feels much more rested and has noticed that she has had more energy during the day. She is very excited about how well things have gone with her CPAP. She is still adjusting to wearing it , but feels that she is going to continue to do very well. We went through each of the settings on the CPAP, to ensure that there is a good understand ing of how to make changes to temperature, humidity and/or the ramp. She is comfortable wit h her current settings, but feels capable of making adjustments, if necessary. I have discussed the download in detail. This shows that her sleep apnea is well controlle d, with an AHI of 0.1 It also shows that her leaks are well controlled. Review of Systems Objective: Physical Exam Assessment: This is well controlled with CPAP. Her CPAP compliance is going well. Plan: She is to continue with CPAP indefinitely. I will follow up again in 2 months, sooner prn. At that time we will reassess with all aniya ropiate paperwork. Fifteen minutes were spent vuub-zn-[id number], with the majority of time spent in counseling. Chris Guallpa PA-C cc: Dr. Yuridia Finn documented in this enco unter Plan of Treatment Not on filedocumented as of this encounter Visit Diagnoses + + | Diagnosis | + + | SANTOS on CPAP - Primary Obstructive sleep apnea (adult) (pediatric) | + + documented in this encounter"
--- OUTSIDE RECORDS SUMMARY | ~2019-12-02 | XMS | Encounter Summary ---
Demographics + + + | Address | [address] | | | [place] [address] | + + + | Home Phone | | + + + | Preferred Language | Unknown | + + + | Marital Status | Legally | + + + | Tenriism Affiliation | Unknown | + + + | Race | Unknown | + + + | Ethnic Group | Unknown | + + + Author + + + | Author | [facility] | | | and [place]ana | + + + | Organization | [facility] | | | and Mattana [...] Team Providers + +------+ + | Care Machine Cage Maker Name | Role | Phone | + +------+ + | Christopher Finn MD | PCP | | + +------+ + Encounter Details +--------+ + + + + | Date | Type | Department | Care Team | Description | +--------+ + + + + | 08/12/ | Hospital | [facility] | Christopher Finn | | | 2012 - | Encounter | MED CTR XRAY [address] | [place] [address] | | | | [place] | [address] [place], [place] | | | 08/14/ | | [place] [address] | [address] | | | 2012 | | [phone] | | | +--------+ + + + [...] | + +--------+ + + + | XR CHEST PA OR AP | Routin | 08/12/2012 | | Results for this | | | e | 5:10 PM | | procedure are in the | | | | PST | | results section. | + +--------+ + + + documented in this encounter Results XR Chest PA or AP (08/12/2012 5:10 PM PST) + + | Specimen | + + | | + + + + + | Narrative | Performed At | + + + | [facility] Diagnostic Imaging | [place] | | Department [address] [facility] [place] | [facility] | | [ rep [phone]] [ rep [facility] | | st zip] Signed | - IMAGING | | | | | Patient Name: KATHY MOYA Physician: | | | TERR.20 : 1955 Age: 57 Sex: F Unit #: [id number] | | | Exam Date: 08/12/12 Location: [facility] | | | Report #: [id number] Page: | | | %(RAD)RES..mtdd.print.filter("pg") of %(RAD) | | | RES..mtdd.print.filter("tpg") | | | | | | Accession Number: [id number] | | | PORTABLE CHEST, [facility], 08/12/2012 | | | CLINICAL HISTORY: HISTORY OF TUBERCULOSIS. | | | COMPARISON: 01/2011. FINDINGS: Heart size is normal. | | | Hilar regions and pulmonary vasculature are normal. There are no | | | areas of abnormal lung density. No bony or upper abdominal | | | abnormalities are seen. IMPRESSION: 1. | | | NEGATIVE STUDY OF THE CHEST. Dictated Date/Time: | | | 08/12/2012 17:10 Transcribed Date/Time: 08/12/2012 17:18 | | | Web Application Tester: <<Signature on File>> | | | | | | Richard Samson MD08/13/12 0852 <Electronically signed by | | | Richard Samson MD> Richard Samson MD 08/12/12 | | | 3910 Web Application Tester: Vidal [email or web address] | | | Christopher Finn MD | | + + + + + + + + | Performing | Address | City/State/Zipcode | Phone Number | | Organization | | | | + + + + + | [address] | [address] | [place] | [phone] | | [facility] | | [address] | | | - IMAGING | | | | + + + + + documented in this encounter Visit Diagnoses Not on filedocumented in this encounter
--- OUTSIDE RECORDS SUMMARY | ~2019-12-02 | XMS | Encounter Summary ---
Demographics + + + | Address | [address] | | | [place] [address] | + + + | Home Phone | | + + + | Preferred Language | Unknown | + + + | Marital Status | Single | + + + | Church Affiliation | NON | + + + | Race | White | + + + | Ethnic Group | Not or | + + + Author + + + | Author | [facility] | + + + | Organization | [facility] | + + + | Address | Unknown | + + + | Phone | Unavailable | + + + Support + + + + + | Name | Relationship | Address | Phone | + + + + + | Adeel Matthews | ECON | [address] | | | | | [place] | | | | | [address] | | + + + + + Care Team Providers + +------+ + | Care Plate Worker Name | Role | Phone | + +------+ + | Froy Daigle MD | PCP | | + +------+ + Encounter Details +--------+ + + + + | Date | Type | Department | Care Team | Description | +--------+ + + + + | 01/16/ | Ancillary | Registration [address] | Akbar Mendoza MD | | | 2006 | Registratio | [address] | [address] | | | | [address] | [address] Mailcode: [id number] | [place], | | | | | [place], [place] | [place] [address] | | | | | [address] | [phone] | | | | | [phone] | | | +--------+ + + + [...]
--- OUTSIDE RECORDS SUMMARY | ~2019-12-02 | XMS | Encounter Summary ---
Demographics + + + | Address | [address] | | | [place] [address] | + + + | Home Phone | | + + + | Preferred Language | Unknown | + + + | Marital Status | Legally | + + + | Orthodox Affiliation | Unknown | + + + | Race | Unknown | + + + | Ethnic Group | Unknown | + + + Author + + + | Author | [facility] | | | and Mattana | + + + | Organization | [facility] | | | and Mattana [...] Team Providers + +------+ + | Care Punch Operator Name | Role | Phone | + +------+ + PCP | Unavailable | + +------+ + Encounter Details +--------+ + + + + | Date | Type | Department | Care Team | Description | +--------+ + + + + | 09/28/ | Hospital | [facility] | | | | 2010 | Encounter | MED CTR GENERIC OP | | | | | | CONV DEPT [address] | | | | | | [address] [place], | | | | | | [place] [address] | | | | | | [phone] | | | +--------+ + + + [...]
--- OUTSIDE RECORDS SUMMARY | ~2019-12-02 | XMS | Encounter Summary ---
Demographics + + + | Address | [address] | | | [place] [address] | + + + | Home Phone | | + + + | Preferred Language | Unknown | + + + | Marital Status | Single | + + + | Mormon Affiliation | NON | + + + [...] [place] | | | | | [address] | | + + + + + Care Team Providers + +------+ + | Care Docket Specialist Name | Role | Phone | + +------+ + PCP | Unavailable | + +------+ + Encounter Details +--------+ + + + + | Date | Type | Department | Care Team | Description | +--------+ + + + + | 12/23/ | Office | UNKNOWN DEPARTMENT | Clinic, Pulmonary | Progress Note | | 2006 | Visit-Trans | [address] | | | | | [place] | [address] | | | | | | [place] | | | | | | [address] | | | +--------+ + + + [...] as of this encounter Progress Notes Interface, Hearing Health Technician In - 01/03/2007 2:32 AM PDT [id number] NITA MENA Johnnie [id number] Clinic Date: 12/23/2006 Clinic: Pulmonary TELEPHONE CONVERSATION I called Kathy Moya again after I discussed her case with my attending physician, Dr. Akbar Mendoza. 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 Given the radiographic improvement from 06/30/2006 to 10/17/2006, the most likely etiologic agent for this is either an infection or inflammatory, possibly a fungal infection. The negative complement fixation test in itself does not rule out the presence of Coccidioides. The patient was previously scheduled to come to see me in a future clinic visit on January 16, 2007. I will be leaving the Pulmonary Clinic as a graduate from the residency program, and therefore, will not be in clinic on this day. The patient has rescheduled and will see Dr. Song on 02/03/2007 for a followup appointment at 3:45 p.m. She should have a PA and lateral chest x-ray prior to this visit to evaluate her lesion. I discussed these results and this plan with the patient who agrees and will come in to our clinic on that day. Emelina Wilder M.D. Akbar Mendoza M.D. / [id number] / [id number] / [id number] / cc: * Froy Daigle M.D. [address] [place] [address] FAX: [phone] Electronically signed by Akbar Mendoza 01-01-2007 05:23:35 PM documented in this encounter Plan of Treatment Not on filedocumented as of this encounter Visit Diagnoses Not on filedocumented in this encounter"
--- OUTSIDE RECORDS SUMMARY | ~2019-12-02 | XMS | Encounter Summary ---
Demographics + + + | Address | [address] | | | [place] [address] | + + + | Home Phone [...] Author + + + | Author | [facility] | + + + | Organization | [facility] | + + + | Address | Unknown | + + + | Phone | Unavailable | + + + Support + + + + + | Name | Relationship | Address | Phone | + + + + + | Adeel Matthews | ECON | [address] | | | | | [place] | | | | | [address] | | + + + + + Care Team Providers + +------+ + | Care Hull Line Crew Member Name | Role | Phone | + +------+ + PCP | Unavailable | + +------+ + Encounter Details +--------+ + + + + | Date | Type | Department | Care Team | Description | +--------+ + + + + | 02/03/ | Office | UNKNOWN DEPARTMENT | Clinic, Pulmonary | Progress Note | | 2006 | Visit-Trans | [address] | | | | | [place] | [address] | | | | | | [place] | | | | | | [address] | | | +--------+ + + + [...] as of this encounter Progress Notes Interface, Online Content Editor In - 02/24/2007 2:30 AM PDT [id number] [place] [id number] Clinic Date: 02/03/2007 Clinic: Pulmonary/Followup Note Referring Physician: Froy Daigle M.D. Reason For Followup: Pulmonary nodule. This is a very pleasant 51-year-old woman who is referred to us from [place], [place], on October 17, 2006. At that time, she had a CT scan of the chest from June 2006 and was found to have a 1.4 x 1.7 cm round nodule in the right upper lobe posterior segment with a presence of cavitation with a thin wall and air-fluid level. She did also have aortic pulmonary window adenopathy measuring 2.5 x 2.1. At that time, it was felt that the patient was asymptomatic. Sputum was obtained; however, unfortunately the patient could not produce any sputum. The patient was tested for HIV as well as for coccidioidomycosis, although tests were negative. The patient had followup chest x-ray in October 2006 as well as today in January 2007 which appeared on chest film that the lesion was shrinking in size. Today, the patient brought with her a CT of the chest from December 2006. The CT scan was done secondary to having a myocardial infarction. The CT scan was done in the emergency room to rule out pulmonary embolism. The right upper lobe posterior segment nodule continues to be present measuring approximately 1.7 x 1.6; however, at this time, there is no evidence of cavitation or air fluid level. However, the nodule on this CT scan appears to be more lobulated. However, again smaller in size. The patient continues to remain asymptomatic. She has no complaints, and all review of systems are negative except for the recent history of myocardial infarction. The CT scan was extensively reviewed with Dr. Deandre Celis. The patient has stopped smoking for the past 14 days on Chantix therapy. Medications: Her medication list includes levothyroxine 50 mcg a day, aspirin 325 a day, Klor-Con, metoprolol, Chantix, Pepcid AC, and Tylenol. Objective: Her vital signs are stable with a weight of 237.8, blood pressure 114/84, pulse of 84, and saturating 98% on room air. She appears comfortable in no acute distress. Her HEENT are all within normal limits. Mucous membranes are moist. There is no palpable adenopathy. Heart: Positive S1 and S2. No murmur, rub, or gallop. Lungs are clear. Abdomen is soft, nontender, and nondistended. There is no lower extremity edema. Laboratories: CT scan reports are reported as above, otherwise there is no new data, and chest x-rays are reported as above. Impression and Plan: Again, this is a very pleasant 51-year-old female who presents for followup for her right upper lobe pulmonary nodule in the posterior segment which appears to be shrinking in size, however, at this point is more lobulated. At this time, a differential is most likely secondary to an infectious etiology with coccidioidomycosis being the most likely. At this time, we would recommend 1. A repeat CT scan of the chest here at [facility] with limited cuts to the right upper lobe nodule in 3 months' time. 2. Pulmonary function test, pre and post bronchodilators with a DLCO. 3. If this nodule has not decreased in size on next followup CT scan or has remained the same, we will refer the patient to Dr. Roberto Serna of Thoracic Surgery for removal. We will await followup recommendations concerning the patient's cardiac status regarding her recent myocardial infarction. The patient was informed of all of the above. We will await all of the above studies and again will see the patient back in 3 months. This patient was extensively discussed with Dr. Kamilah Marte. Again, CT scans were reviewed with Dr. Deandre Celis. Kenzie Song D.O. Kamilah Marte M.D. / HS [id number] / [id number] / [id number] / [id number] cc: Froy Daigle M.D. [address] [place] [address] Electronically signed by Kamilah Marte 02-23-2007 09:36:25 AM nterface, Online Content Editor In - 02/24/2007 2:30 AM PDT [id number] [place] [id number] Clinic Date: 02/03/2007 Clinic: Pulmonary I have interviewed and examined Ms. Moya. I have reviewed her recent CT scan and chest x-ray. I agree with Dr. Song's dictated note. The patient has a lesion in the right upper lobe noted back in June 2006. She remains asymptomatic. She was hospitalized recently for a myocardial infarction. She has a followup visit with the bottler later this week. CT scan shows slight change in contour of the right upper lobe. It is no longer within air-fluid level. It is more lobulated in appearance. It is slightly larger in the longest diameter although appears to be a closing cavity. We discussed pros and cons of pursuing further diagnosis at this time. Given her recent cardiovascular event, it seems prudent to wait 3 months. She has discontinued smoking. We will repeat PFTs and a limited CT scan of the chest in 3 months. Kmailah Marte M.D. / HS [id number] / [id number] / [id number] / [id number] Electronically signed by Kamilah Marte 02-23-2007 09:36:45 AM documented in this encounter Plan of Treatment Not on filedocumented as of this encounter Visit Diagnoses Not on filedocumented in this encounter"
--- OUTSIDE RECORDS SUMMARY | ~2019-12-02 | XMS | Encounter Summary ---
Demographics + + + | Address | [address] | | | [place] [address] | + + + | Home Phone | | + + + | Preferred Language | Unknown | + + + | Marital Status | Legally | + + + | Orthodoxy Affiliation | Unknown | + + + | Race | Unknown | + + + | Ethnic Group | Unknown | + + + Author + + + | Author | [facility] | | | and [place]ana | + + + | Organization | [facility] | | | and Mattana | [...] Team Providers + +------+ + | Care Proposal Writer Name | Role | Phone | + [...] + + | 02/20/ | Office | [facility] | Chris Guallpa PA | SANTOS on CPAP (Primary | | 2012 | Visit | SLEEP DISORDER [address] | [address] | Dx) | | | | [address] | [place] | | | | | [place] [address] | [address] | | | | | [phone] | | | +--------+---------+ + + + [...] ResMed S9 with nasal pillows obtained from: [facility] pressure is: 5-15 cm 95%: 8.0 [...] aniya ropiate paperwork. Fifteen minutes were spent oils-gs-jree, with the majority of time spent in [...]
--- OUTSIDE RECORDS SUMMARY | ~2019-12-02 | XMS | Encounter Summary ---
Demographics + + + | Address | [address] | | | [place] [address] | + + + | Home Phone | | + + + | Preferred Language | Unknown | + + + | Marital Status | Legally | + + + | Protestant Affiliation | Unknown | + + + | Race | Unknown | + + + | Ethnic Group | Unknown | + + + Author + + + | Author | [facility] | | | and Mattana | + + + | Organization | [facility] | | | and Mattana [...] Team Providers + +------+ + | Care Industrial Laborer Name | Role | Phone | + +------+ + | Crhistopher Finn MD | PCP | | + +------+ + Encounter Details +--------+ + + + + | Date | Type | Department | Care Team | Description | +--------+ + + + + | 12/01/ | [facility] | [facility] | Christopher Finn | | | 2012 | Encounter | MED CTR XRAY [address] | [place] [address] | | | | | [address] | [address] [place], [place] | | | | | [place] [address] | [address] | | | | | [phone] | | | +--------+ + + + + Social History + + [...] + + + +---------+ + + | ARIPiprazole | Take 5 mg by mouth | | 0 | | | | (ABILIFY) 5 mg | Daily. | | | | | | tablet | | | | | | + + + +---------+ + + | fluticasone | 1 spray by Nasal | | 0 | | | | (FLONASE) 50 | route Daily. | | | | | | mcg/nasal spray | | | | | | + [...] + + + +---------+ + + | methocarbamol | Take 750 mg by mouth | | 0 | | | | (ROBAXIN) 750 mg | 4 times daily. | | | | | | tablet | | | | | | + + + +---------+ + + | omeprazole | Take 40 mg by mouth | | 0 | | | | (PRILOSEC) 40 MG | Daily. | | | | | | capsule | | | | | | + + + +---------+ + + | UNCODED | Wear at all times | 1 | 0 | 09/24/19 | | | MEDICATIONIndication | while sleeping. | Device | | 13 | | | s: SANTOS (obstructive | | | | | | | sleep apnea) | | | | | | + + + +---------+ + + documented as of this encounter Plan of Treatment Not on filedocumented as of this encounter Procedures + +--------+ + + + | Procedure Name | Priori | Date/Time | Associated Diagnosis | Comments | | | ty | | | | + +--------+ + + + | XR HAND BILATERAL PA | Routin | 12/01/2012 | | Results for this | | | e | 4:44 PM | | procedure are in the | | | | PDT | | results section. | + +--------+ + + + documented in this encounter Results XR Hand Bilateral PA (12/01/2012 4:44 PM PDT) + + | Specimen | + + | | + + + + + | Narrative | Performed At | + + + | [facility] | [facility] | | Department [address] [place], [place] [address] | [facility] | | [ rep [address]] [ rep [facility] | | st zip] Signed | - IMAGING | | | | | Patient Name: KATHY MOYA Physician: | | | LORELEI : 1955 Age: 57 Sex: F Unit #: [id number] | | | Exam Date: 12/01/12 Location: [facility] | | | Report #: [id number] Page: | | | %(RAD)RES..mtdd.print.filter("pg") of %(RAD) | | | RES..mtdd.print.filter("tpg") | | | | | | Accession Number: [id number] | | | BILATERAL HAND, LIMITED X-RAY CLINICAL HISTORY: | | | RHEUMATOID ARTHRITIS. THIS STUDY WAS OBTAINED AT [facility] | | | [facility]. FINDINGS: LEFT SIDE: There is no | | | fracture or dislocation. No juxtaarticular erosion is seen. Joint | | | spaces and alignment are maintained. Demineralization is suggested | | | in a periarticular distribution. The ulnar styloid process is normal | | | in appearance. No soft tissue swelling is noted. RIGHT | | | SIDE: Findings in the right hand match findings in the left hand, as | | | described above. IMPRESSION: DEMINERALIZATION IN A | | | PERIARTICULAR DISTRIBUTION, PARTICULARLY AT THE METACARPOPHALANGEAL | | | JOINTS, CAN BE SEEN WITH HYPEREMIA IN VERY EARLY RHEUMATOID | | | ARTHRITIS. NO EVIDENCE OF MORE ADVANCED FEATURES TO SUGGEST | | | RHEUMATOID ARTHRITIS. Dictated Date/Time: 12/01/2012 | | | 16:44 Transcribed Date/Time: 12/01/2012 18:11 | | | Turkey Cleaner: <<Signature on File>> | | | | | | Satya Chaves MD12/02/12 9025 <Electronically signed by Satya | | | Derik Chaves MD> Satya Chaves MD 12/01/12 6970 | | | Turkey Cleaner: MesoCoatstephanie Zrkjdtujonfzs56/23/13 8358 | | | Christopher Finn MD | | + + + + + + + + | Performing | Address | City/State/Zipcode | Phone Number | | Organization | | | | + + + + + | [facility] | [address] | [place] | [phone] | | [facility] | | [address] | | | - IMAGING | | | | + + + + + documented in this encounter Visit Diagnoses Not on filedocumented in this encounter
--- OUTSIDE RECORDS SUMMARY | ~2019-12-02 | XMS | Encounter Summary ---
Demographics + + + | Address | [address] | | | [place] [address] | + + + | Home Phone | | + + + | Preferred Language | Unknown | + + + | Marital Status | Single | + + + | Nondenominational Affiliation | NON | + + + | Race | White | + + + | Ethnic Group | Not or | + + + Author + + + | Author | [facility] | + + + | Organization | [facility] | + + + | Address | Unknown | + + + | Phone | Unavailable | + + + Support + + + + + | Name | Relationship | Address | Phone | + + + + + | Adeel Matthews | ECON | [address] | | | | | [place] | | | | | [address] | | + + + + + Care Team Providers + +------+ + | Care Cutter Finisher Name | Role | Phone | + +------+ + | Froy Daigle MD | PCP | | + +------+ + Encounter Details +--------+ + + + + | Date | Type | Department | Care Team | Description | +--------+ + + + + | 08/20/ | Ancillary | Registration [id number] | | | | 2006 | Registratio | [address] | | | | | n | Misael Mailcode: [id number] | | | | | | [place], [place] | | | | | | [address] | | | | | | [phone] | | | +--------+ + + + [...]
--- OUTSIDE RECORDS SUMMARY | ~2019-12-02 | XMS | Encounter Summary ---
Demographics + + + | Address | [address] | | | [place] [address] | + + + | Home Phone | | + + + | Preferred Language | Unknown | + + + | Marital Status | Single | + + + | Evangelical Affiliation | NON | + + + | Race | White | + + + | Ethnic Group | Not or | + + + Author + + + | Author | [facility] | + + + | Organization | [facility] | + + + | Address | Unknown | + + + | Phone | Unavailable | + + + Support + + + + + | Name | Relationship | Address | Phone | + + + + + | Adeel Matthews | ECON | [address] | | | | | [place] | | | | | [address] | | + + + + + Care Team Providers + +------+ + | Care Assisted Living Housekeeper Name | Role | Phone | + +------+ + PCP | Unavailable | + +------+ + Encounter Details +--------+ + + + + | Date | Type | Department | Care Team | Description | +--------+ + + + + | 02/03/ | Office | Pulmonary & | Kenzie Sevilla, | | | 2006 | Visit-ECX | Critical Care | MD | | | | | Medicine at | | | | | | [facility] | | | | | | [address] | | | | | | [address] [facility] | | | | | | [facility], [address] Floor | | | | | | [place], [place] | | | | | | [address] | | | | | | [phone] | | | +--------+ + + + [...]
--- OUTSIDE RECORDS SUMMARY | ~2019-12-02 | XMS | Encounter Summary ---
Demographics + + + | Address | [address] | | | [place] [address] | + + + | Home Phone | | + + + | Preferred Language | Unknown | + + + | Marital Status | Legally | + + + | Yazdanism Affiliation | Unknown | + + + | Race | Unknown | + + + | Ethnic Group | Unknown | + + + Author + + + | Author | [facility] | | | and [place]ana | + + + | Organization | [facility] | | | and [...] Team Providers + +------+ + | Care Pump Stitcher Name | Role | Phone | + +------+ + | Froy Daigle | PCP | | | MD | | | + +------+ + Encounter Details +--------+ + + + + | Date | Type | Department | Care Team | Description | +--------+ + + + + | 03/07/ | Orders Only | [facility] | Provider, | | | 2018 | | SYSTEM GENERIC OP | [address] | | | | | [address] | [place] | | | | | [address] [place], [place] | [place] [address] | | | | | [address] | | | | | | [phone] | | | +--------+ + + + + Social History + + + +--------+------+ | Tobacco Use | Types | Packs/Day | Years | Date | | | | | Used | | + + + +--------+------+ | Former Smoker | Cigarettes | 0.8 | 47 | | + + + +--------+------+ + [...]
--- OUTSIDE RECORDS SUMMARY | ~2019-12-02 | XMS | Encounter Summary ---
Demographics + + + | Address | [address] | | | [place] [address] | + + + | Home Phone | | + + + | Preferred Language | Unknown | + + + | Marital Status | Single | + + + | Yazidism Affiliation | NON | + + + [...] [place] | | | | | [address] | | + + + + + Care Team Providers + +------+ + | Care Suppository Molding Machine Operator Name | Role | Phone | [...] [id number] | | | | | | [place], [place] | | | | | | [address] | | | | | | [phone] | | | +--------+ + + + [...]
--- OUTSIDE RECORDS SUMMARY | ~2019-12-02 | XMS | Clinical Summary ---
Demographics + + + | Address | [address] | | | [place] [address] | + + + | Home Phone | | + + + | Preferred Language | Unknown | + + + | Marital Status | Legally | + + + | Mosque Affiliation | Unknown | + + + | Race | Unknown | + + + | Ethnic Group | Unknown | + + + Author + + + | Author | [facility] | | | and [place] | + + + | Organization | [facility] | | | and [place] [...] Team Providers + +------+ + | Care Sales Superintendent Name | Role | Phone | + +------+ + | Froy Daigle | PCP | | | MD | | | + +------+ + Allergies + + + + + + | Active Allergy | Reactions | Severity | Noted | Comments | | | | | Date | | + + + + + + | Codeine | Headache | Low | 04/18/20 | | | | | | 15 | | + + + + + + | Codeine Sulfate | | | | | + + + + + + | Novocain | | | | | + + + + + + | Penicillins | Other (See Comments) | Medium | 04/18/20 | Childhood allergy | | | | | 15 | | + + + + + + | Procaine | Nausea And Vomiting | Low | 04/18/20 | | | | | | 15 | | + + + + + + | Sulfamethoxazole | Nausea And Vomiting | Low | 08/25/19 | | | W/Trimethoprim | | | 13 | | | (Co-Trimoxazole) | | | | | + + + + + + | Sulfamethoxazole-Tri | Nausea And Vomiting | Low | 04/18/20 | | | methoprim | | | 15 | | + + + + + + Medications + + + +---------+------+------+-------+ | Medication | Sig | Dispensed | Refills | Star | End | Statu | | | | | | t | Date | s | | | | | | Date | | | + + + +---------+------+------+-------+ | meloxicam (MOBIC) | Take 15 mg by mouth | | 0 | 04/11 | | Activ | | 15 mg tablet | Daily. | | | 4/20 | | e | | | | | | 12 | | | + + + +---------+------+------+-------+ | omeprazole | Take 40 mg by mouth | | 0 | | | Activ | | (PRILOSEC) 40 MG | Daily. | | | | | e | | capsule | | | | | | | + + + +---------+------+------+-------+ | methocarbamol | Take 750 mg by mouth | | 0 | | | Activ | | (ROBAXIN) 750 mg | 4 times daily. | | | | | e | | tablet | | | | | | | + + + +---------+------+------+-------+ | ARIPiprazole | Take 5 mg by mouth | | 0 | | | Activ | | (ABILIFY) 5 mg | Daily. | | | | | e | | tablet | | | | | | | + + + +---------+------+------+-------+ | UNCODED | Wear at all times | 1 | 0 | 02/1 | | Activ | | MEDICATIONIndication | while sleeping. | Device | | 4/20 | | e | | s: SANTOS (obstructive | | | | 13 | | | | sleep apnea) | | | | | | | + + + +---------+------+------+-------+ | fluticasone | 1 spray by Nasal | | 0 | | | Activ | | (FLONASE) 50 | route Daily. | | | | | e | | mcg/nasal spray | | | | | | | + + + +---------+------+------+-------+ | UNCODED | Diagnosis: | 1 | 0 | 07/2 | | Activ | | MEDICATIONIndication | Obstructive Sleep | Device | | 2/20 | | e | | s: Obstructive sleep | ApneaICD-9: | | | 13 | | | | apnea (adult) | 327.23Length of | | | | | | | (pediatric) | Need: 99 Months | | | | | | + + + +---------+------+------+-------+ | Uncoded Medication | [id number] | 1 | 0 | 05/0 | | Activ | | | Pillows cushion or | Device | | 6/20 | | e | | | nasal mask cushion | | | 14 | | | | | (up to 2 per month); | | | | | | | | [id number] | | | | | | | | Mask, pillows or | | | | | | | | full face frame (1 | | | | | | | | every 3 months); | | | | | | | | [id number] Humidifier | | | | | | | | Chamber (replacement | | | | | | | | 1 every 6 months); | | | | | | | | [id number] Heated Tubing | | | | | | | | (replacement 1 every | | | | | | | | 3 months), A7035 | | | | | | | | Headgear (1 every 6 | | | | | | | | months); A7036 | | | | | | | | Chinstrap (1 per 6 | | | | | | | | months); | | | | | | + + + +---------+------+------+-------+ | Uncoded Medication | [id number] CPAP RES MED | 1 | 0 | 05/0 | | Activ | | | S9- MIN 5 cm MAX 20 | Device | | 8/20 | | e | | | cm; [id number] Nasal | | | 14 | | | | | Pillows; A7032 Nasal | | | | | | | | Mask; A7030 Full | | | | | | | | Face Mask; [id number] | | | | | | | | Heated Humidifier; | | | | | | | | A7037 Heated Tubing; | | | | | | | | A7034 Cushions; | | | | | | | | A7036 Chinstrap; | | | | | | | | A7039 / A7038 | | | | | | | | Filters; AHI 14.0 , | | | | | | | | if <15 symptoms of: | | | | | | | | (a) Excessive | | | | | | | | daytime sleepiness, | | | | | | | | impaired cognition, | | | | | | | | mood disorders, or | | | | | | | | insomniaDate of Most | | | | | | | | Recent | | | | | | | | Polysomnogram | | | | | | | | 09/17/2012; | | | | | | + + + +---------+------+------+-------+ | Uncoded Medication | Convert CPAP to | 1 | 0 | 01/09 | | Activ | | | purchase for SANTOS | Device | | 10/28 | | e | | | (327.23) | | | 14 | | | + + + +---------+------+------+-------+ | levothyroxine | Take 50 mcg by mouth | | 0 | | | Activ | | (SYNTHROID, | every morning | | | | | e | | LEVOTHROID) 50 mcg | (before breakfast). | | | | | | | tablet | | | | | | | + + + +---------+------+------+-------+ | alendronate | | | 0 | 09/2 | | Activ | | (FOSAMAX) 70 mg | | | | 8/20 | | e | | tablet | | | | 18 | | | + + + +---------+------+------+-------+ | cetirizine | Take 20 mg by mouth | | 0 | | | Activ | | (ZYRTEC) 10 MG | daily. | | | | | e | | chewable tablet | | | | | | | + + + +---------+------+------+-------+ | cetirizine | | | 0 | 09/1 | | Activ | | (ZYRTEC) 10 mg | | | | 9/20 | | e | | tablet | | | | 18 | | | + + + +---------+------+------+-------+ | cholecalciferol | Take by mouth. | | 0 | | | Activ | | (VITAMIN D-3) 400 | | | | | | e | | units capsule | | | | | | | + + + +---------+------+------+-------+ | lidocaine | | | 0 | 10/0 | | Activ | | 1%-EPINEPHrine | | | | 3/20 | | e | | 1:100,000 injection | | | | 18 | | | + + + +---------+------+------+-------+ | lisinopril | | | 0 | 09/2 | | Activ | | (PRINIVIL, ZESTRIL) | | | | 8/20 | | e | | 10 mg tablet | | | | 18 | | | + + + +---------+------+------+-------+ | metFORMIN | Take 1,500 mg by | | 0 | | | Activ | | (GLUCOPHAGE) 1000 MG | mouth 2 (two) times | | | | | e | | tablet | daily with meals. | | | | | | + + + +---------+------+------+-------+ | metFORMIN | | | 0 | 07/2 | | Activ | | (GLUCOPHAGE) 500 mg | | | | 5/20 | | e | | tablet | | | | 18 | | | + + + +---------+------+------+-------+ | oxyCODONE 10 MG | | | 0 | 09/0 | | Activ | | TABS | | | | 5/20 | | e | | | | | | 18 | | | + + + +---------+------+------+-------+ | topiramate | Start 1/2 tab by | | 0 | 09/0 | | Activ | | (TOPAMAX) 50 MG | mouth at night x 1 | | | 8/20 | | e | | tablet | week, then take 1 | | | 15 | | | | | tab nightly. May | | | | | | | | increase up to 1 tab | | | | | | | | twice daily or | | | | | | | | minimal effective | | | | | | | | dose as directed. | | | | | | + + + +---------+------+------+-------+ | varenicline | | | 0 | 09/2 | | Activ | | (CHANTIX CONTINUING | | | | 0/20 | | e | | MONTH ELIAS) 1 MG | | | | 18 | | | | tablet | | | | | | | + + + +---------+------+------+-------+ | fluticasone | 1 spray by Nasal | | 0 | | | Activ | | (FLONASE) 50 | route. | | | | | e | | mcg/nasal spray | | | | | | | + + + +---------+------+------+-------+ | levothyroxine | Take 100 mcg by | | 0 | | | Activ | | (SYNTHROID) 50 mcg | mouth. | | | | | e | | tablet | | | | | | | + + + +---------+------+------+-------+ | meloxicam (MOBIC) | Take 15 mg by mouth. | | 0 | 09/1 | | Activ | | 15 mg tablet | | | | 4/20 | | e | | | | | | 12 | | | + + + +---------+------+------+-------+ | methocarbamol | Take 750 mg by | | 0 | | | Activ | | (ROBAXIN) 750 mg | mouth. | | | | | e | | tablet | | | | | | | + + + +---------+------+------+-------+ Active Problems + + + | Problem | Noted Date | + + + | HIATAL HERNIA | 09/28/2010 | + + + | REFLUX ESOPHAGITIS | 09/28/2010 | + + + | SKIN LESION | | + + + | PULMONARY NODULE | | + + + | HYPOTHYROIDISM | | + + + | SALIVARY GLAND HYPERTROPHY | | + + + | DEPRESSION | | + + + | GEN OSTEOARTHROSIS INVOLVING MULTIPLE SITES | | + + + | SANTOS (obstructive sleep apnea) | | + + + + + | Overview: Kathy Moya underwent attended polysomnography on | | 09/17/2012 which revealed a latency to sleep onset of 14 minutes | | and a sleep efficiency of 92.0%. The percentages of the various | | stages of sleep were Normal. There appeared to be "rebounds" of | | both N3 and REM sleep suggesting that this was a better than | | usual night's sleep. The arousal index was 14.1 which is normal. | | The Respiratory Disturbance Index was 16.6; the Apnea-Hypopnea | | Index was 14.0; and the Apnea-Index was 7.6. The Respiratory | | Arousal Index was 6.4. The bret oxygen saturation recorded | | during sleep was 76.0%. The patient spent 11.7 minutes with an | | oxygen saturation of less than 88%. There were 0 Periodic Limb | | Movements and the PLMS Arousal Index was 0.0. Last Assessment & | | Plan: CPAP 5-15cm was prescribed on 09/24/2012 | + + + +---+ | Delayed sleep phase syndrome | | + +---+ | REM sleep behavior disorder | | + +---+ | Bipolar 1 disorder | | + +---+ | Excessive sleepiness | | + +---+ | Obesity | | + +---+ | Rheumatoid arthritis(714.0) | | + +---+ + + | Overview: ICD-10 Record update | + + + +---+ | Multiple personality disorder | | + +---+ + + | Overview: Under no therapy at the present | + + Family History + + +------+ + | Medical History | Relation | Name | Comments | + + +------+ + | Cancer | Brother | | Prostate Cancer | + + +------+ + | Other (see comment) | Brother | | Parkinson's Disease | + + +------+ + | Cancer | Father | | prostate | + + +------+ + | High blood pressure | Father | | | + + +------+ + | Other (see comment) | Father | | hypercoagulable state, epilepsy, loud | | | | | snoring | + + +------+ + | Diabetes | Mother | | | + + +------+ + | Diabetes, NIDDM | Mother | | | + + +------+ + | Heart disease | Mother | | | + + +------+ + | Other (see comment) | Mother | | SANTOS - oxygen therapy, claustrophobia | + + +------+ + | Cancer | Son | | Lung Cancer | + + +------+ + | Other (see comment) | Son | | NonHodgkin's Lymphoma survivor | + + +------+ + + +------+ + + | Relation | Name | Status | Comments | + +------+ + + | Brother | | | Lung cancer | | | | (Age | | | | | 30's) | | + +------+ + + | Brother | | Alive | | + +------+ + + | Brother | | Alive | | + +------+ + + | Father | | Alive | | + +------+ + + | Father | | | | + +------+ + + | Mother | | | | + +------+ + + | Mother | | | | + +------+ + + | Sister | | Alive | | + +------+ + + | Sister | | Alive | | + +------+ + + | Sister | | Alive | | + +------+ + + | Sister | | Alive | | + +------+ + + | Son | | Alive | | + +------+ + + | Son | | Alive | | + +------+ + + Social History + + + [...] recent travel history available. | + + Last Filed Vital Signs + + + + + | Vital Sign | Reading | Time Taken | Comments | + + + + + | Blood Pressure | 118/80 | 02/20/2015 10:50 AM | | | | | PDT | | + + + + + | Pulse | 86 | 02/20/2015 10:50 AM | | | | | PDT | | + + + + + | Temperature | - | - | | + + + + + | Respiratory Rate | 16 | 02/20/2015 10:50 AM | | | | | PDT | | + + + + + | Oxygen Saturation | 96% | 02/20/2015 10:50 AM | | | | | PDT | | + + + + + | Inhaled Oxygen | - | - | | | Concentration | | | | + + + + + | Weight | 91.2 kg (201 lb) | 05/13/2018 2:35 PM | | | | | PDT | | + + + + + | Height | 157.5 cm (5' 2") | 05/13/2018 2:35 PM | | | | | PDT | | + + + + + | Body Mass Index | 36.76 | 05/13/2018 2:35 PM | | | | | PDT | | + + + + + Plan of Treatment + + + + + | Health Maintenance | Due Date | Last Done | Comments | + + + + + | Hepatitis C | | | | | Screening | 7 | | | + + + + + | Vaccine: | | | | | Dtap/Tdap/Td (1 - | 8 | | | | Tdap) | | | | + + + + + | Cervical Cancer | | | | | Screening (Pap) | 7 | | | + + + + + | Vaccine: Zoster (1 | | | | | of 2) | 7 | | | + + + + + | Breast Cancer | | | | | Screening | 2 | | | + + + + + | Vaccine: Influenza | | | | | (Season Ended) | 0 | | | + + + + + | Colorectal Cancer | | 09/28/2010 | | | Screening | 1 | | | | (Colonoscopy) | | | | + + + + + Results Not on filefrom Last 3 Months Insurance + +--------+ +--------+ +---------+--------+ | Payer | Benefi | Subscriber | Effect | Phone | Address | Type | | | t Plan | ID | teressa | | | | | | / | | Dates | | | | | | Group | | | | | | + +--------+ +--------+ +---------+--------+ | [employer] | [employer] | [id number] | 12/15/19 | [phone] | | Medica | | MEDICAID HMO | HEALTH | | 14-Pre | 1 | | id | | | MDCD | | sent | | | | | | [place]MO [place] | | | | | | + +--------+ +--------+ +---------+--------+ + +--------+ +--------+ + + | Guarantor Name | Accoun | Relation to | Date | Phone | Billing Address | | | t Type | Patient | of | | | | | | | | | | + +--------+ +--------+ + + | Kathy Moya Johnnie | Person | Self | [birth year] | [address] | | | al/Fam | | 7 | [phone] | [place] | | | petra | | | 7 (Home) | [id number] | | | | | | [phone] | | | | | | | 3 (Work) | | + +--------+ +--------+ + + Advance Directives + + + + + | Type | Date Recorded | Patient | Explanation | | | | 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
--- OUTSIDE RECORDS SUMMARY | ~2019-12-02 | XMS | Encounter Summary ---
Demographics + + + | Address | [address] | | | [place] [address] | + + + | Home Phone | | + + + | Preferred Language | Unknown | + + + | Marital Status | Legally | + + + | Pentecostalism Affiliation | Unknown | + + + | Race | Unknown | + + + | Ethnic Group | Unknown | + + + Author + + + | Author | [facility] | | | and [place] | + + + | Organization | [facility] | | | and Mattana | [...] Team Providers + +------+ + | Care Catalyst Manufacturing Operator Name | Role | Phone | + +------+ + PCP | Unavailable | + +------+ + Encounter Details +--------+ + + + + | Date | Type | Department | Care Team | Description | +--------+ + + + + | 07/13/ | Hospital | [facility] | Mario Alberto Doll, | Unspecified Chest | | 2006 | Encounter | [facility] | MD [address] | Pain | | | | CLINICAL DECISION | [place] [address] | | | | | [address] [facility] | [phone] | | | | | [place], [place] | | | | | | [address] | | | | | | [phone] | | | +--------+ + + + [...] + | Diagnosis | + + | Chest pain, unspecified | + + documented in this encounter"
--- OUTSIDE RECORDS SUMMARY | ~2019-12-02 | XMS | Encounter Summary ---
Demographics + + + | Address | [address] | | | [place] [address] | + + + | Home Phone | | + + + | Preferred Language | Unknown | + + + | Marital Status | Single | + + + | Scientologist Affiliation | NON | + + + | Race | White | + + + | Ethnic Group | Not or | + + + Author + + + | Author | [facility] | + + + | Organization | [facility] | + + + | Address | Unknown | + + + | Phone | Unavailable | + + + Support + + + + + | Name | Relationship | Address | Phone | + + + + + | Adeel Matthews | ECON | [address] | | | | | [place] | | | | | [address] | | + + + + + Care Team Providers + +------+ + | Care Employee Benefits Attorney Name | Role | Phone | + +------+ + | Froy Daigle MD | PCP | | + +------+ + Encounter Details +--------+ + + + + | Date | Type | Department | Care Team | Description | +--------+ + + + + | 04/25/ | Hvac Technician Residential | Pulmonary & | Dawson Almanzar, | Pulmonary Nodule | | 2007 | | Critical Care | | (Primary Dx) | | | | Medicine at | | | | | | [facility] | | | | | | [address] | | | | | | [facility] | | | | | | [facility], 3rd Floor | | | | | | [place], [place] | | | | | | [address] | | | | | | [phone] | | | +--------+ + + + [...] | + +---------+--------+ + + | CT CHEST WO CONTRAST | Imaging | Routin | Pulmonary Nodule | 08/09/2008 1:30 PM | | | | e | | PST | + +---------+--------+ + + documented as of this encounter Visit Diagnoses + + | Diagnosis | + + | Pulmonary nodule - Primary Other diseases of lung, not elsewhere classified | + + documented in this encounter"
--- OUTSIDE RECORDS SUMMARY | ~2019-12-02 | XMS | Encounter Summary ---
Demographics + + + | Address | [address] | | | [place] [address] | + + + | Home Phone [...] Author + + + | Author | [facility] | + + + | Organization | [facility] | + + + | Address | Unknown | + + + | Phone | Unavailable | + + + Support + + + + + | Name | Relationship | Address | Phone | + + + + + | Adeel Matthews | ECON | [address] | | | | | [place] | | | | | [address] | | + + + + + Care Team Providers + +------+ + | Care Hypoid Gear Tester Name | Role | Phone | + +------+ + | Froy Daigle MD | PCP | | + +------+ + Encounter Details +--------+ + + + + | Date | Type | Department | Care Team | Description | +--------+ + + + + | 04/25/ | Commercial Marketing Specialist | Pulmonary & | Dawson Almanzar, | Pulmonary Nodule | | 2007 | | Critical Care | | (Primary Dx) | | | | Medicine at | | | | | | [facility] | | | | | | [address] | | | | | | [address] [facility] | | | | | | [facility], 3rd Floor | | | | | | [place], [place] | | | | | | [address] | | | | | | [phone] | | | +--------+ + + + [...]
--- OUTSIDE RECORDS SUMMARY | ~2019-12-02 | XMS | Encounter Summary ---
Demographics + + + | Address | [address] | | | [place] [address] | + + + | Home Phone | | + + + | Preferred Language | Unknown | + + + | Marital Status | Legally | + + + | Faith Affiliation | Unknown | + + + | Race | Unknown | + + + | Ethnic Group | Unknown | + + + Author + + + | Author | [facility] | | | and [place] | + + + | Organization | [facility] | | | and [place] | [...] Team Providers + +------+ + | Care Solids Control Technician Name | Role | Phone | + [...] | | | | | [address] | | | | | | [place], [place] | | | | | | [address] | | | | | | [phone] | | | +--------+ + + + [...]
--- OUTSIDE RECORDS SUMMARY | ~2019-12-02 | XMS | Encounter Summary ---
Demographics + + + | Address | [address] | | | [place] [address] | + + + | Home Phone | | + + + | Preferred Language | Unknown | + + + | Marital Status | Legally | + + + | Mormonism Affiliation | Unknown | + + + | Race | Unknown | + + + | Ethnic Group | Unknown | + + + Author + + + | Author | [facility] | | | and [place] | + + + | Organization | [facility] | | | and [...] Team Providers + +------+ + | Care Physiotherapist'S Assistant Name | Role | Phone | + [...] + + | 02/20/ | Office | [facility] | Chris Guallpa PA | SANTOS on CPAP (Primary | | 2015 | Visit | SLEEP DISORDER [address] | [address] | Dx) | | | | [address] | [place], [place] | | | | | [place] [address] | [address] | | | | | [phone] | | | +--------+---------+ + + + [...] + + + + | Weight | 104.2 kg (229 lb | 02/20/2015 10:50 AM | | | | 11.2 oz) | PDT | | + + + + + | Height | - | - | | + + + + + | Body Mass Index | 40.69 | 08/25/2012 1:53 PM | | | | | PST | | + + + + + documented in this encounter Progress Notes Rosie Melvin CMA - 02/20/2015 10:44 AM PDT 02/20/15 [address] Depression Inventory-II Depression Score 2 - Minimal depression Insomnia Severity Index Insomnia Severity Index 1 Herminie Sleepiness Scale Sitting and reading 1 Watching TV 1 Sitting, inactive in a public place (e.g. a theatre or a meeting) 0 As a passenger in a car for an hour without a break 0 Lying down to rest in the afternoon when circumstances permit 2 Sitting and talking to someone 0 Sitting quietly after a lunch without alcohol 1 In a car, while stopped for a few minutes in traffic 0 Total score 5 SF-36v2 Score PF 52.82 RP 54.4 BP 46.06 GH 52.93 VT 55.21 SF 45.94 RE 55.88 MH 52.82 PCS 50.65 MCS 53.2 Chris Billingsley PA - 10:30 AM PDT Subjective: Patient ID: Kathy Moya is a 60 y.o. female. HPI last office visit was: 01/21/2014 date of polysomnography: 09/17/2012 AHI: 14.0 RDI: 16.6 O2%: 76% with 11.7 minutes below 88% Machine type: ResMed S9 with nasal pillows obtained from: [facility] [place] pressure is: 5-20 cm Median: 5.4 cm 95%: 7.1 cm maxium: 8.6 cm Nights using CPAP: 363/365 % of nights >4 hours: 96% average usage (all nights): 13:44 average usage (nights used): 13:49 AHI: 0.2 Kathy comes in for CPAP compliance. She is using her CPAP on a nightly basis for the durat ion of the night. She says she loves her CPAP. She says her insomnia, daytime sleepiness, energy and depression have all improved since starting CPAP. She does not consider sleeping without it. She is replacing her equipment regularly. She does not have any questions or concerns. I have discussed the download and results of the paperwork in detail. She is unchanged or improved in nearly all categories, with no areas of concern. The download shows that her sl eep apnea is well controlled, with an AHI of 0.2. It also shows that her leaks are well con trolled. Review of Systems Objective: Physical Exam Assessment: Problem #1: OBSTRUCTIVE SLEEP APNEA (327.23) This is well controlled with CPAP. Her CPAP compliance is going very well. Plan: She is to continue with CPAP indefinitely. I have recommended that she touch base with her medical supplier twice per year to ensure that her equipment is satisfactory. I will follow up again in 2 years, sooner prn. At that time we will reassess with all appr opiate paperwork. Fifteen minutes were spent [id number], with the majority of time spent in counseling. Chris Guallpa PA-C cc: Froy Daigle MD documented in this enco unter Plan of Treatment Not on filedocumented as of this encounter Visit Diagnoses + + | Diagnosis | + + | SANTOS on CPAP - Primary Obstructive sleep apnea (adult) (pediatric) | + + documented in this encounter"
--- OUTSIDE RECORDS SUMMARY | ~2019-12-02 | XMS | Clinical Summary ---
Demographics + + + | Address | [address] | | | [place] [address] | + + + | Home Phone | | + + + | Preferred Language | Unknown | + + + | Marital Status | Single | + + + | Mormonism Affiliation | NON | + + + | Race | White | + + + | Ethnic Group | Not or | + + + Author + + + | Author | NON REVENUE LOCATIONS | + + + | Organization | NON REVENUE LOCATIONS | + + + | Address | Unknown | + + + | Phone | Unavailable | + + + Support + + + + + | Name | Relationship | Address | Phone | + + + + + | Adeel Matthews | ECON | [address] | | | | | [place] | | | | | [address] | | + + + + + Care Team Providers + +------+ + | Care Spacer Type Bar And Segment Name | Role | Phone | + +------+ + PCP | Unavailable | + +------+ + Source Comments [facility] and [facility] Allergies + + + + + + | Active Allergy | Reactions | Severity | Noted | Comments | | | | | Date | | + + + + + + | Codeine | Headache | | 10/18/19 | | | | | | 07 | | + + + + + + | Procaine | Nausea/Vomiting | | 10/18/19 | | | | | | 07 | | + + + + + + | Penicillins | Anaphylaxis | | 10/18/19 | | | | | | 07 | | + + + + + + Medications + + + +---------+------+------+-------+ | Medication | Sig | Dispensed | Refills | Star | End | Statu | | | | | | t | Date | s | | | | | | Date | | | + + + +---------+------+------+-------+ | Famotidine (PEPCID | take 1 tablet (20mg) | | 0 | | | Activ | | AC) 20 mg OR TABS | by oral route 2 | | | | | e | | | times per day | | | | | | + + + +---------+------+------+-------+ | Aspirin 325 mg | x1 tab daily | | 0 | | | Activ | | Oral Tab | | | | | | e | + + + +---------+------+------+-------+ | Potassium Chloride | x1 tab daily | | 0 | | | Activ | | (ANUPAM-CON 10) 10 | | | | | | e | | mEq Oral Tablet | | | | | | | | Sustained Release | | | | | | | + + + +---------+------+------+-------+ | Metoprolol | x2 tabs daily | | 0 | | | Activ | | Tartrate 25 mg Oral | | | | | | e | | Tab | | | | | | | + + + +---------+------+------+-------+ | Varenicline | x1 tab daily | | 0 | | | Activ | | (CHANTIX) | | | | | | e | | 0.5(11)-1(3X14) mg | | | | | | | | Oral Tablets, Dose | | | | | | | | Pack | | | | | | | + + + +---------+------+------+-------+ | Acetaminophen | take 1 tablet (325 | | 0 | | | Activ | | (TYLENOL) 325 mg | mg) by oral route | | | | | e | | Oral Tab | every 4 hours as | | | | | | | | needed | | | | | | + + + +---------+------+------+-------+ | Levothyroxine | take 1 tablet (50 | | 0 | | | Activ | | Sodium (LEVOXYL) 50 | mcg) by oral route | | | | | e | | mcg Oral Tablet | once daily | | | | | | + + + +---------+------+------+-------+ | Loratadine | take 1 tablet (10 | | 0 | | | Activ | | (CLARITIN) 10 mg | mg) by oral route | | | | | e | | Oral Tablet | once daily | | | | | | + + + +---------+------+------+-------+ Active Problems + + + | Problem | Noted Date | + + + | Pulmonary nodule | 04/25/2008 | + + + Social History + +-------+ [...] | + + Last Filed Vital Signs Not on file Plan of Treatment + + + + + | Health Maintenance | Due Date | Last Done | Comments | + + + + + | Influenza (Flu) | | | | | vaccination (#1) | 9 | | | + + + + + | Pneumococcal | Aged Out | | No longer eligible | | vaccination | | | based on patient's | | | | | age to complete this | | | | | topic | + + + + + Results Not on filefrom Last 3 Months"
--- OUTSIDE RECORDS SUMMARY | ~2019-12-02 | XMS | Encounter Summary ---
Demographics + + + | Address | [address] | | | [place] [address] | + + + | Home Phone | | + + + | Preferred Language | Unknown | + + + | Marital Status | Single | + + + | Cheondoism Affiliation | NON | + + + | Race | White | + + + | Ethnic Group | Not or | + + + Author + + + | Author | [facility] | + + + | Organization | [facility] | + + + | Address | Unknown | + + + | Phone | Unavailable | + + + Support + + + + + | Name | Relationship | Address | Phone | + + + + + | Adeel Matthews | ECON | [address] | | | | | [place] | | | | | [address] | | + + + + + Care Team Providers + +------+ + | Care Md Physician Dermatologist Name | Role | Phone | + +------+ + | Froy Daigle MD | PCP | | + +------+ + Encounter Details +--------+ + + + + | Date | Type | Department | Care Team | Description | +--------+ + + + + | 10/17/ | Ancillary | Registration 3181 | Kamilah Marte, | | | 2006 | Registratio | JULIANA Verduzco MD | | | | n | Misael Mailcode: [id number] | | | | | | [place], [place] | | | | | | [address] | | | | | | [phone] | | | +--------+ + + + [...] | + +--------+ + + + | LAB OTHER | Routin | 10/17/2006 | | Results for this | | | e | 10:59 AM | | procedure are in the | | | | PST | | results section. | + +--------+ + + + | LAB OTHER | Routin | 10/17/2006 | | Results for this | | | e | 10:58 AM | | procedure are in the | | | | PST | | results section. | + +--------+ + + + | FUNGAL ANTIBIODIES | Routin | 10/17/2006 | | Results for this | | (CF), SERUM | e | 10:40 AM | | procedure are in the | | | | PST | | results section. | + +--------+ + + + | HIV-1,2 AB/HIV-1 P24 | Routin | 10/17/2006 | | Results for this | | AG SCRN | e | 10:40 AM | | procedure are in the | | | | PST | | results section. | + +--------+ + + + | X-RAY CHEST 2 VIEW | Routin | 10/17/2006 | | Results for this | | | e | 9:01 AM | | procedure are in the | | | | PST | | results section. | + +--------+ + + + documented in this encounter Results LAB OTHER (10/17/2006 10:59 AM PST) + + + + + + | Component | Value | Ref Range | Performed | Pathologist | | | | | At | Signature | + + + + + + | MISC REF | Cocciddioides AB, serum | | [facility] | | | TEST NAME | by ID | | DEPARTMENT | | | | | | OF | | | | | | PATHOLOGY | | + + + + + + | MISC REF | Negative | | [facility] | | | TEST RESULT | | | DEPARTMENT | | | | | | OF | | | | | | PATHOLOGY | | + + + + + + | NORMAL | NEG | | [facility] | | | RANGE | | | DEPARTMENT | | | | | | OF | | | | | | PATHOLOGY | | + + + + + + | REFERRAL | [facility] | | [facility] | | | LAB NAME | Mateus Retana. | | DEPARTMENT | | | | | | OF | | | | | | PATHOLOGY | | + + + + + + + + | Specimen | + + | | + + + + + + + | Performing | Address | City/State/Zipcode | Phone Number | | Organization | | | | + + + + + | [facility] | [address] | [place] [address] | | | PATHOLOGY | [address] | | | + + + + + | [facility] | [address] | [place] [address] | | | PATHOLOGY | [address] | | | + + + + + LAB OTHER (10/17/2006 10:58 AM PST) + + + + + + | Component | Value | Ref Range | Performed | Pathologist | | | | | At | Signature | + + + + + + | MISC REF | Coccidioides AB, Serum | | [facility] | | | TEST NAME | by CF | | DEPARTMENT | | | | | | OF | | | | | | PATHOLOGY | | + + + + + + | MISC REF | 1:2 ----> 0 | | [facility] | | | TEST RESULT | 1:4 ----> 0 | | DEPARTMENT | | | | 1:8 ----> 0' | | OF | | | | | | PATHOLOGY | | + + + + + + | REFERRAL | Papmarlyngianis Manuelidoides | | [facility] | | | LAB NAME | Serology LabUC | | DEPARTMENT | | | | [place] [id number] | | OF | | | | | | PATHOLOGY | | + + + + + + + + | Specimen | + + | | + + + + + + + | Performing | Address | City/State/Zipcode | Phone Number | | Organization | | | | + + + + + | [facility] | [address] | [place] [address] | | | PATHOLOGY | [address] | | | + + + + + | [facility] | [address] | [place] [address] | | | PATHOLOGY | [address] | | | + + + + + HIV AB, SCREEN (10/17/2006 10:40 AM PST) + + + + + + | Component | Value | Ref Range | Performed | Pathologist | | | | | At | Signature | + + + + + + | HIV-1/HIV2 | Non-ReactiveComment: | Negative | [facility] | | | AB SCREEN | Reference Range: | | DEPARTMENT | | | | Non-reactive | | OF | | | | | | PATHOLOGY | | + + + + + + + + | Specimen | + + | | + + + + + + + | Performing | Address | City/State/Zipcode | Phone Number | | Organization | | | | + + + + + | [facility] | [address] | [place] [address] | | | PATHOLOGY | [address] | | | + + + + + | [facility] | [address] | [place] [address] | | | PATHOLOGY | [address] | | | + + + + + FUNGAL ANTIBIODIES (CF) (10/17/2006 10:40 AM PST) + + + + + + | Component | Value | Ref Range | Performed | Pathologist | | | | | At | Signature | + + + + + + | HISTOPLASMA | See cmnt | <1:8 Titer | | | | YEAST | | | | | + + + + + + | HISTOPLASMA | See cmnt | <1:8 Titer | | | | MYCELIAL | | | | | + + + + + + | COCCIDIOIDE | See cmnt | <1:2 Titer | | | | S | | | | | + + + + + + | BLASTOMYCES | See cmnt | <1:8 Titer | | | + + + + + + | ASPERGILLUS | See cmnt | <1:8 Titer | | | | (LAB) | | | | | + + + + + + + + | Specimen | + + | | + + + + + | Narrative | Performed At | + + + | Fungal Antibody (CF) Erroneous request. | | + + + + + + + + | Performing | Address | City/State/Zipcode | Phone Number | | Organization | | | | + + + + + | [facility] | [address] | [place], [place] | | | [facility] | | [address] | | + + + + + CHEST 2 VIEW (10/17/2006 9:01 AM PST) + + + + + + | Component | Value | Ref Range | Performed | Pathologist | | | | | At | Signature | + + + + + + | CHEST, 2 | Radiologist 1: PAULETTE, | | | | | VIEWS [place] | DEMETRICE RitterEXAM: PA and | | | | | STEREO | lateral chest. | | | | | | INDICATION: Lung nodules | | | | | | COMPARISON: None. | | | | | | FINDINGS: The cardiac | | | | | | and mediastinal contours | | | | | | are normal. Thelungs | | | | | | are clear. There is no | | | | | | pleural effusion or | | | | | | pneumothorax.Osseous | | | | | | structures are | | | | | | unremarkable. | | | | | | IMPRESSION: 1. Negative | | | | | | exam. Addendum # 1 by | | | | | | Demetrice Celis on | | | | | | 17-Oct-2006 10:53 EXAM: | | | | | | PA and lateral chest. | | | | | | INDICATION: Lung nodules | | | | | | COMPARISON: None. | | | | | | FINDINGS: The cardiac | | | | | | and mediastinal contours | | | | | | are normal. Thelungs | | | | | | are clear. There is no | | | | | | pleural effusion or | | | | | | pneumothorax.Osseous | | | | | | structures are | | | | | | unremarkable. | | | | | | IMPRESSION: 1. Negative | | | | | | exam.Comparison with an | | | | | | outside examination is | | | | | | present on | | | | | | 06/30/06.There was a | | | | | | well defined cavitary | | | | | | nodules present within | | | | | | the rightupper lobe. | | | | | | It has significantly | | | | | | decreased and is | | | | | | barelydiscernible on the | | | | | | first of costochondral | | | | | | junction on the PA.Given | | | | | | its decrease, it is | | | | | | overwhelmingly | | | | | | infectious/inflammatory, | | | | | | potentially fungal. | | | | + + + + + + + + | Specimen | + + | | + + + +---------+ + + | Performing | Address | City/State/Zipcode | Phone Number | | Organization | | | | + +---------+ + + | [facility] | | | | | RADIOLOGY | | | | + +---------+ + + documented in this encounter Visit Diagnoses Not on filedocumented in this encounter"
--- OUTSIDE RECORDS SUMMARY | ~2019-12-02 | XMS | Encounter Summary ---
Demographics + + + | Address | [address] | | | [place] [address] | + + + | Home Phone | | + + + | Preferred Language | Unknown | + + + | Marital Status | Single | + + + | Synagogue Affiliation | NON | + + + | Race | White | + + + | Ethnic Group | Not or | + + + Author + + + | Author | [facility] | + + + | Organization | [facility] | + + + | Address | Unknown | + + + | Phone | Unavailable | + + + Support + + + + + | Name | Relationship | Address | Phone | + + + + + | Adeel Matthews | ECON | [address] | | | | | [place] | | | | | [address] | | + + + + + Care Team Providers + +------+ + | Care Office Rn Name | Role | Phone | + [...] [id number] | | | | | | [place], [place] | | | | | | [address] | | | | | | [phone] | | | +--------+ + + + [...]
--- OUTSIDE RECORDS SUMMARY | ~2019-12-02 | XMS | Encounter Summary ---
Demographics + + + | Address | [address] | | | [place] [address] | + + + | Home Phone | | + + + | Preferred Language | Unknown | + + + | Marital Status | Legally | + + + | Shinto Affiliation | Unknown | + + + | Race | Unknown | + + + | Ethnic Group | Unknown | + + + Author + + + | Author | [facility] | | | and [place] | + + + | Organization | [facility] | | | and [place] [...] Team Providers + +------+ + | Care Core Driller Name | Role | Phone | + [...] + + | 11/30/ | Office | [facility] | Chris Guallpa PA | SANTOS on CPAP (Primary | | 2012 | Visit | SLEEP DISORDER [address] | [address] | Dx) | | | | [address] | [place] | | | | | [place] [address] | [address] | | | | | [phone] | | | +--------+---------+ + + + [...] Insomnia Severity Index Insomnia Severity Index 7 [place] Sleepiness Scale Sitting and reading 1 Watching [...] C flex with nasal pillows obtained from: [facility] pressure is: 5-15 cm 95%: cm [...] appro piate paperwork. Fifteen minutes were spent [id number], with the majority of time spent i [...]
--- OUTSIDE RECORDS SUMMARY | ~2019-12-02 | XMS | Encounter Summary ---
Demographics + + + | Address | [address] | | | [place] [address] | + + + | Home Phone | | + + + | Preferred Language | Unknown | + + + | Marital Status | Single | + + + | Moravian Affiliation | NON | + + + | Race | White | + + + | Ethnic Group | Not or | + + + Author + + + | Author | [facility] | + + + | Organization | [facility] | + + + | Address | Unknown | + + + | Phone | Unavailable | + + + Support + + + + + | Name | Relationship | Address | Phone | + + + + + | Adeel Matthews | ECON | [address] | | | | | [place] | | | | | [address] | | + + + + + Care Team Providers + +------+ + | Care Slp Teacher Name | Role | Phone | + +------+ + PCP | Unavailable | + +------+ + Encounter Details +--------+ + + + + | Date | Type | Department | Care Team | Description | +--------+ + + + + | 10/17/ | Office | Pulmonary & | Emelina Wilder MD | | | 2006 | Visit-ECX | Critical Care | [address] | | | | | Medicine at | [facility] | | | | | [facility] | [place] [address] | | | | | [address] | [phone] | | | | | [facility] | | | | | | [place], [address] Floor | | | | | | [place], [place] | | | | | | [address] | | | | | | [phone] | | | +--------+ + + + [...]
--- OUTSIDE RECORDS SUMMARY | ~2019-12-02 | XMS | Encounter Summary ---
Demographics + + + | Address | [address] | | | [place] [address] | + + + | Home Phone [...] [place] | | | | | [address] | | + + + + + Care Team Providers + +------+ + | Care Construction Engineering Manager Name | Role | Phone | + [...] Pavilion | | | | | | [address] | | | | | | [facility] | | | | | | [facility], [address] Floor | | | | | | [place], [place] | | | | | | [address] | | | | | | [phone] | | | +--------+ + + + [...]
--- OUTSIDE RECORDS SUMMARY | ~2019-12-02 | XMS | Encounter Summary ---
Demographics + + + | Address | [address] | | | [place] [address] | + + + | Home Phone [...] Author + + + | Author | [facility] | + + + | Organization | [facility] | + + + | Address | Unknown | + + + | Phone | Unavailable | + + + Support + + + + + | Name | Relationship | Address | Phone | + + + + + | Adele Matthews | ECON | [address] | | | | | [place] | | | | | [address] | | + + + + + Care Team Providers + +------+ + | Care Corporate Real Estate Specialist Name | Role | Phone | [...] [address] | | | | | | [place] | | | | | | [address] | | | +--------+ + + + [...] as of this encounter Progress Notes Interface, Production Designer In - 01/03/2007 2:32 AM PDT [id number] NITA MENA Johnnie [id number] Clinic Date: 12/23/2006 Clinic: Pulmonary TELEPHONE CONVERSATION [...] Emelina Wilder M.D. Akbar Mendoza M.D. / [id number] / [id number] / [id number] / cc: * Froy Daigle M.D. [address] [place] [address] FAX: [phone] Electronically signed by Akbar Mendoza 01-01-2007 05:23:35 PM documented in this encounter Plan of Treatment Not on filedocumented as of this encounter Visit Diagnoses Not on filedocumented in this encounter"
--- OUTSIDE RECORDS SUMMARY | ~2019-12-02 | XMS | Encounter Summary ---
Demographics + + + | Address | [address] | | | [place] [address] | + + + | Home Phone | | + + + | Preferred Language | Unknown | + + + | Marital Status | Legally | + + + | Catholic Affiliation | Unknown | + + + | Race | Unknown | + + + | Ethnic Group | Unknown | + + + Author + + + | Author | [facility] | | | and [place] | + + + | Organization | [facility] | | | and [place] [...] Team Providers + +------+ + | Care Roof Bolter Helper Name | Role | Phone | + +------+ + | Froy Daigle | PCP | | | MD | | | + +------+ + Encounter Details +--------+ + + + + | Date | Type | Department | Care Team | Description | +--------+ + + + + | 03/07/ | Orders Only | [facility] | Provider, | | | 2018 | | SYSTEM GENER[facility] OP | [address] | | | | | [address] | [place] | | | | | [address] [place], [place] | [place] [address] | | | | | [address] | | | | | | [phone] | | | +--------+ + + + [...]
--- OUTSIDE RECORDS SUMMARY | ~2019-12-02 | XMS | Encounter Summary ---
Demographics + + + | Address | [address] | | | [place] [address] | + + + | Home Phone | | + + + | Preferred Language | Unknown | + + + | Marital Status | Legally | + + + | Mandaen Affiliation | Unknown | + + + | Race | Unknown | + + + | Ethnic Group | Unknown | + + + Author + + + | Author | [facility] | | | and [place] | + + + | Organization | [facility] | | | and [place] [...] Team Providers + +------+ + | Care Escrow Officer Name | Role | Phone | + +------+ + | Christopher Finn MD | PCP | | + +------+ + Encounter Details +--------+ + + + + | Date | Type | Department | Care Team | Description | +--------+ + + + + | 12/01/ | [facility] | [facility] | Christopher Finn | | | 2012 | Encounter | MED CTR XRAY [address] | [place] [address] | | | | | [place] | [address] [place], [place] | | | | | [place] [address] | [address] | | | | | [phone] | | | +--------+ + + + [...] Performed At | + + + | [facility] | DENNIS | | Department [address] [place], [place] [address]Ale | [facility] | | [ rep [address]] [ rep [facility] | | st zip] Signed | - IMAGING | | | | | Patient Name: KATHY MOYA Physician: | | | LORELEI : 1955 Age: 57 Sex: F Unit #: [id number] | | | Exam Date: 12/01/12 Location: [facility] | | | Report #: [id number] Page: | | | %(RAD)RES..mtdd.print.filter("pg") of %(RAD) | | | RES..mtdd.print.filter("tpg") | | | | | | Accession Number: [id number] | | | BILATERAL HAND, LIMITED X-RAY CLINICAL HISTORY: | | | RHEUMATOID ARTHRITIS. THIS STUDY WAS OBTAINED AT [facility] | | | [facility]. FINDINGS: LEFT SIDE: There is no [...] Transcribed Date/Time: 12/01/2012 18:11 | | | Nuclear Reactor Technician: <<Signature on File>> | | | | | | Satya Chaves MD12/02/12 0738 <Electronically signed by Satya | | | Derik Chaves MD> Satya Chaves MD 12/01/12 5996 | | | Nuclear Reactor Technician: Tucker Blairstephanie Xqonjioxkqczm83/23/13 8959 | | | Christopher Finn MD | | + + + + + + + + | Performing | Address | City/State/Zipcode | Phone Number | | Organization | | | | + + + + + | [facility] | [address] | [place] | [phone] | | [facility] | | [address] | | | - IMAGING | | | | + + + + + documented in this encounter Visit Diagnoses Not on filedocumented in this encounter
--- OUTSIDE RECORDS SUMMARY | ~2019-12-02 | XMS | Encounter Summary ---
Demographics + + + | Address | [address] | | | [place] [address] | + + + | Home Phone | | + + + | Preferred Language | Unknown | + + + | Marital Status | Single | + + + | Quaker Affiliation | NON | + + + [...] [place] | | | | | [address] | | + + + + + Care Team Providers + +------+ + | Care Final Inspector Motorcyles Name | Role | Phone | + [...] [id number] | | | | | | [place], [place] | | | | | | [address] | | | | | | [phone] | | | +--------+ + + + [...]
--- OUTSIDE RECORDS SUMMARY | ~2019-12-02 | XMS | Encounter Summary ---
Demographics + + + | Address | [address] | | | [place] [address] | + + + | Home Phone | | + + + | Preferred Language | Unknown | + + + | Marital Status | Single | + + + | Judaism Affiliation | NON | + + + | Race | White | + + + | Ethnic Group | Not or | + + + Author + + + | Author | [facility] | + + + | Organization | [facility] | + + + | Address | Unknown | + + + | Phone | Unavailable | + + + Support + + + + + | Name | Relationship | Address | Phone | + + + + + | Adeel Matthews | ECON | [address] | | | | | [place] | | | | | [address] | | + + + + + Care Team Providers + +------+ + | Care County Director Welfare Name | Role | Phone | + [...] [id number] | | | | | | [place], [place] | | | | | | [address] | | | | | | [phone] | | | +--------+ + + + [...]
--- OUTSIDE RECORDS SUMMARY | ~2019-12-02 | XMS | Encounter Summary ---
Demographics + + + | Address | [address] | | | [place] [address] | + + + | Home Phone | | + + + | Preferred Language | Unknown | + + + | Marital Status | Legally | + + + | Temple Affiliation | Unknown | + + + | Race | Unknown | + + + | Ethnic Group | Unknown | + + + Author + + + | Author | [facility] | | | and Mattana | + + + | Organization | [facility] | | | and Mattana [...] Team Providers + +------+ + | Care Instructional Media Services Technician Name | Role | Phone | + +------+ + | Froy Daigle | PCP | | | MD | | | + +------+ + Encounter Details +--------+ + + + + | Date | Type | Department | Care Team | Description | +--------+ + + + + | 03/03/ | Hospital | [facility] | Conversion | Unknown cause of | | 2015 | Encounter | CONVERSION DEP [address] | Transaction, | injury | | | | SHANEL EM | Provider Unknown | | | | | [place] | [phone] | | | | | [address] | | | | | | [phone] | | | +--------+ + + + [...] | | 0 | | | | (SYNTHROID, | every morning | | | | | | LEVOTHROID) 50 mcg | (before breakfast). | | | | | | tablet [...] + + + +---------+ + + | topiramate | Start 1/2 tab by | | 0 | 04/18/20 | | | (TOPAMAX) 50 MG | mouth at night x 1 | | | 15 | | | tablet | week, then take 1 | | | | | | | tab nightly. May | | | | | | | increase up to 1 tab | | | | | | | twice daily or | | | | | | | minimal effective | | | | | | | dose as directed. | | | | | + + + +---------+ + + | Uncoded Medication | Convert CPAP to | 1 | 0 | 01/22/20 | | | | purchase for SANTOS | Device | | 14 | | | | (327.23) | | | | | + + + +---------+ + + | Uncoded Medication | [id number] CPAP RES MED | 1 | 0 | 12/17/19 | | | | S9- MIN 5 cm MAX 20 | Device | | 14 | | | | cm; [id number] Nasal | | | | | | | Pillows; [id number] [...] | 09/17/2012; | | | | | + + + +---------+ + + | Uncoded Medication | [id number] | 1 | 0 | 12/15/19 | | | | Pillows cushion or | Device | | 14 | | | | nasal mask cushion | | | | | | | (up to 2 per month); | | | | | | | [id number] | | | | | | | [...] | months); | | | | | + + + +---------+ + + | UNCODED | Diagnosis: | 1 | 0 | 03/01/20 | | | MEDICATIONIndication | Obstructive Sleep | Device | | 13 | | | s: Obstructive sleep | ApneaICD-9: | | | | | | apnea (adult) | 327.23Length of | | | | | | (pediatric) | Need: 99 Months | | | | | + + [...] | + +--------+ + + + | MRI BRAIN WO | Routin | 05/10/2015 | | Results for this | | CONTRAST | e | 8:15 AM | | procedure are in the | | | | PDT | | results section. | + +--------+ + + + documented in this encounter Results MRI Brain wo Contrast (05/10/2015 8:15 AM PDT) + + | Specimen | + + | | + + + + + | Narrative | Performed At | + + + | This is a non-reportable procedure without a radiologist report and | | | is used for image storage only | | + + + + + | Procedure Note | + + | Stuart Esquivel - 03/25/2019 9:40 PM PDT This is a non-reportable procedure | | without a radiologist report and isused for image storage only | + + documented in this encounter Visit Diagnoses + + | Diagnosis | + + | Unknown cause of injury Unspecified accident | + + documented in this encounter"
--- OUTSIDE RECORDS SUMMARY | ~2019-12-02 | XMS | Encounter Summary ---
Demographics + + + | Address | [address] | | | [place] [address] | + + + | Home Phone | | + + + | Preferred Language | Unknown | + + + | Marital Status | Single | + + + | Anglican Affiliation | NON | + + + | Race | White | + + + | Ethnic Group | Not or | + + + Author + + + | Author | [facility] | + + + | Organization | [facility] | + + + | Address | Unknown | + + + | Phone | Unavailable | + + + Support + + + + + | Name | Relationship | Address | Phone | + + + + + | Adeel Matthews | ECON | [address] | | | | | [place] | | | | | [address] | | + + + + + Care Team Providers + +------+ + | Care Training Systems Officer Name | Role | Phone | [...] [id number] | | | | | | [place], [place] | | | | | | [address] | | | | | | [phone] | | | +--------+ + + + [...]
--- OUTSIDE RECORDS SUMMARY | ~2019-12-02 | XMS | Encounter Summary ---
Demographics + + + | Address | [address] | | | [place] [address] | + + + | Home Phone | | + + + | Preferred Language | Unknown | + + + | Marital Status | Legally | + + + | Mosque Affiliation | Unknown | + + + | Race | Unknown | + + + | Ethnic Group | Unknown | + + + Author + + + | Author | [facility] | | | and Mattana | + + + | Organization | [facility] | | | and [...] Team Providers + +------+ + | Care Postage Machine Operator Name | Role | Phone | + +------+ + | Froy Daigle | PCP | | | MD | | | + +------+ + Encounter Details +--------+ + + + + | Date | Type | Department | Care Team | Description | +--------+ + + + + | 12/16/ | Orders Only | [facility] | Chris Guallpa PA | SANTOS on CPAP (Primary | | 2013 | | SLEEP DISORDER [address] | [address] | Dx) | | | | [address] [place] | [place], [place] | | | | | [place] [address] | [phone] | | | | | [phone] | | | +--------+ + + + [...]
--- OUTSIDE RECORDS SUMMARY | ~2019-12-02 | XMS | Encounter Summary ---
Demographics + + + | Address | [address] | | | [place] [address] | + + + | Home Phone | | + + + | Preferred Language | Unknown | + + + | Marital Status | Legally | + + + | Muslim Affiliation | Unknown | + + + | Race | Unknown | + + + | Ethnic Group | Unknown | + + + Author + + + | Author | [facility] | | | and Mattana | + + + | Organization | [facility] | | | and Mattana [...] Team Providers + +------+ + | Care Apron Cleaner Name | Role | Phone | + +------+ + | Christopher Finn MD | PCP | | + +------+ + Encounter Details +--------+ + + + + | Date | Type | Department | Care Team | Description | +--------+ + + + + | 08/12/ | Hospital | [facility] | Christopher Finn | | | 2012 - | Encounter | MED CTR XRAY [address] | [address] [place] [address] | | | | | [place] | [address] [place], [place] | | | 08/14/ | | [place] [address] | [address] | | | 2012 | | [phone] | | | +--------+ + + + [...] Performed At | + + + | [facility] | [facility] | | Department [address] [facility] [place] | [facility] | | [ rep [address]] [ rep [facility] | | st zip] Signed | - IMAGING | | | | | Patient Name: KATHY MOYA Physician: | | | TERR.20 : 1955 Age: 57 Sex: F Unit #: [id number] | | | Exam Date: 08/12/12 Location: [facility] | | | Report #: [id number] Page: | | | %(RAD)RES..mtdd.print.filter("pg") of %(RAD) | | | RES..mtdd.print.filter("tpg") | | | | | | Accession Number: [id number] | | | PORTABLE CHEST, [facility], 08/12/2012 | | | CLINICAL HISTORY: [...] Transcribed Date/Time: 08/12/2012 17:18 | | | Knife Cutter: <<Signature on File>> | | | | | | Richard Samson MD08/13/12 0852 <Electronically signed by | | | Richard Samson MD> Richard Samson MD 08/12/12 | | | 2040 Knife Cutter: Vidal [id number] | | | Christopher Finn MD | | + + + + + + + + | Performing | Address | City/State/Zipcode | Phone Number | | Organization | | | | + + + + + | [address] | [address] | [place] | [phone] | | [facility] | | [address] | | | - IMAGING | | | | + + + + + documented in this encounter Visit Diagnoses Not on filedocumented in this encounter
--- OUTSIDE RECORDS SUMMARY | ~2019-12-02 | XMS | Encounter Summary ---
Demographics + + + | Address | [address] | | | [place] [address] | + + + | Home Phone [...] Author + + + | Author | [facility] | + + + | Organization | [facility] | + + + | Address | Unknown | + + + | Phone | Unavailable | + + + Support + + + + + | Name | Relationship | Address | Phone | + + + + + | Adeel Matthews | ECON | [address] | | | | | [place] | | | | | [address] | | + + + + + Care Team Providers + +------+ + | Care Cell Assembly Pinner Name | Role | Phone | + +------+ + PCP | Unavailable | + +------+ + Encounter Details +--------+ + + + + | Date | Type | Department | Care Team | Description | +--------+ + + + + | 10/17/ | Office | Allergy Clinic at | Report, Outpatient | Progress Note | | 2006 | Visit-Trans | [facility] [address] | Consultation | | | | [place] | Eugene Maldonado | | | | | | Darin Lugo | | | | | | [facility], [address] [place] [address] | | | | | | [place], [place] | | | | | | [address] | | | | | | [phone] | | | +--------+ + + + [...] as of this encounter Progress Notes Interface, Stuffed Casing Tier In - 11/18/2006 2:33 AM PDT [id number] NITA Blair [id number] Referred From and Faxed To: Froy Daigle M.D. Referred To: Akbar Mendoza M.D. Consulting Physician: Akbar Mendoza M.D. Consultation Date: 10/17/2006 Referring Physician: Froy Daigle M.D. Pulmonary Clinic Consult Note Reason For Requested Consultation: Pulmonary nodule. History of Present Illness: Kathy Moya is a 51-year-old woman referred from [place], [place], for evaluation of a cavitating right upper lobe lung nodule. She presented to the [facility] in June 2006 with pleuritic left-sided chest [...] same apartment complex she was living in [place], [place], who had tuberculosis. She subsequently had [...] REACTION. Social History: She was born in [place]. She subsequently lived in [facility] and [place] and [place], [place]. Additionally, she spent time in [place], [place] in the [facility] for several months. Exposure: Tuberculosis exposure as described above, denies any IV drug use ever, did smoke marijuana in the past but has not for 30 years, never been in alf. She does have a brother who has [...] and a boyfriend in a house in [place]. Family History: Mother with thyroid cancer at age 62, father who is healthy. She has 15 siblings. There are no history of malignancies, cardiovascular disease, or inflammatory bowel disease. She has 2 sons one who lives in [place] and one who lives in [place]. 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 She [...] Laboratory Data: Basic metabolic panel from the [facility] on July 08, 2006, is notable for [...] angio from July 08, 2006, done at [facility] was interpreted with Dr. Link Armijo and [...] plan. Akbar Mendoza M.D. MM / BEREKET [id number] / [id number] / [id number] / cc: Froy Daigle M.D. [address] [place] [id number] Electronically signed by Akbar Mendoza 11-14-2006 04:39:06 PM documented in this encounter Plan of Treatment Not on filedocumented as of this encounter Visit Diagnoses Not on filedocumented in this encounter"
--- OUTSIDE RECORDS SUMMARY | ~2019-12-02 | XMS | Encounter Summary ---
Demographics + + + | Address | [address] | | | [place] [address] | + + + | Home Phone [...] Author + + + | Author | [facility] | + + + | Organization | [facility] | + + + | Address | Unknown | + + + | Phone | Unavailable | + + + Support + + + + + | Name | Relationship | Address | Phone | + + + + + | Adeel Matthews | ECON | [address] | | | | | [place] | | | | | [address] | | + + + + + Care Team Providers + +------+ + | Care Birthing Nurse Name | Role | Phone | + +------+ + | Froy Daigle MD | PCP | | + +------+ + Encounter Details +--------+ + + + + | Date | Type | Department | Care Team | Description | +--------+ + + + + | 04/22/ | Office Cashier | Pulmonary & | Dawson Almanzar, | Pulmonary Nodule | | 2007 | | Critical Care | | (Primary Dx) | | | | Medicine at | | | | | | [facility] | | | | | | [address] | | | | | | [address] [facility] | | | | | | [facility], 3rd Floor | | | | | | [place], [place] | | | | | | [address] | | | | | | [phone] | | | +--------+ + + + [...]
--- OUTSIDE RECORDS SUMMARY | ~2019-12-02 | XMS | Encounter Summary ---
Demographics + + + | Address | [address] | | | [place] [address] | + + + | Home Phone | | + + + | Preferred Language | Unknown | + + + | Marital Status | Legally | + + + | Sikh Affiliation | Unknown | + + + | Race | Unknown | + + + | Ethnic Group | Unknown | + + + Author + + + | Author | [facility] | | | and Mattana | + + + | Organization | [facility] | | | and [...] Team Providers + +------+ + | Care Stevedore Hold Name | Role | Phone | + [...] Description | +--------+---------+ + + + | 01/21/ | Office | [facility] | Chris Guallpa PA | SANTOS on CPAP (Primary | | 2013 | Visit | SLEEP DISORDER [address] | [address] | Dx) | | | | [address] [place] | [place] | | | | | [place] [address] | [address] | | | | | [phone] | | | +--------+---------+ + + + [...] + + + | Blood Pressure | 122/80 | 01/21/2014 8:42 AM | | | | | PDT | | + + + + + | Pulse | 84 | 01/21/2014 8:42 AM | | | | | PDT | | + + + + + | Temperature | - | - | | + + + + + | Respiratory Rate | 16 | 01/21/2014 8:42 AM | | | | | PDT | | + + + + + | Oxygen Saturation | 98% | 01/21/2014 8:42 AM | | | | | PDT | | + + + + + | Inhaled Oxygen | - | - | | | Concentration | | | | + + + + + | Weight | 115 kg (253 lb 8 oz) | 01/21/2014 8:42 AM | | | | | PDT | | + + + + + | Height | - | - | | + + + + + | Body Mass Index | 44.91 | 08/25/2012 1:53 PM | | | | | PST | | + + + + + documented in this encounter Progress Notes Chris Guallpa PA - 01/21/2014 8:40 AM PDT Subjective: Patient ID: Kathy Moya is a 58 y.o. female. HPI last office visit was: 12/14/2013 date of polysomnography: 09/17/2012 AHI: 14.0 RDI: 16.6 O2%: 76% with 11.7 minutes below 88% Machine type: ResMed S9 with nasal pillows obtained from: [facility] pressure is: 5-20 cm 95%: 10.3 cm maxium: 12.7 cm CPAP download shows CPAP useage # nights: average usage (all nights): 12:34 average usage (nights used): 12:34 AHI: 0.2 Kathy comes in for CPAP compliance. She is using her CPAP on a nightly basis for the durat ion of the night. She is doing very well with the ResMed S9. She enjoyed using it compared to her old machine. She is excited to continue with it. She does not have any questions o r concerns. I have discussed the download in detail. This shows that her sleep apnea is well controlle d, with an AHI of 0.2. It also shows that her leaks are well controlled. It shows that she is wearing her CPAP >4 hours for 100% of the nights during the last 32 nights. Review of Systems Objective: Physical Exam Assessment: Problem #1: OBSTRUCTIVE SLEEP APNEA (327.23) This is well controlled with CPAP. Her CPAP compliance has gone well with the ResMed S9. She is wearing her CPAP >4 hours for 100% of the nights during the last 32 nights. Plan: She is to continue with CPAP indefinitely. We have faxed a prescription to [facility] in [place] to convert her ResMed S9 to purchase. I have recommended that she touch base with her medical supplier twice per year to ensure that her equipment is satisfactory. I will follow up again in 1 year, sooner prn. At that time we will reassess with all appro piate paperwork. Fifteen minutes were spent [id number], with the majority of time spent i [...]
--- OUTSIDE RECORDS SUMMARY | ~2019-12-02 | XMS | Encounter Summary ---
Demographics + + + | Address | [address] | | | [place] [address] | + + + | Home Phone | | + + + | Preferred Language | Unknown | + + + | Marital Status | Single | + + + | Anabaptism Affiliation | NON | + + + | Race | White | + + + | Ethnic Group | Not or | + + + Author + + + | Author | [facility] | + + + | Organization | [facility] | + + + | Address | Unknown | + + + | Phone | Unavailable | + + + Support + + + + + | Name | Relationship | Address | Phone | + + + + + | Adeel Matthews | ECON | [address] | | | | | [place] | | | | | [address] | | + + + + + Care Team Providers + +------+ + | Care Wall Washer Name | Role | Phone | + [...] | Rd Mailcode: [id number] | [place], | | | | | [place], [place] | [place] [address] | | | | | [address] | [phone] | | | | | [phone] | | | +--------+ + + + [...]
--- OUTSIDE RECORDS SUMMARY | ~2019-12-02 | XMS | Encounter Summary ---
Demographics + + + | Address | [address] | | | [place] [address] | + + + | Home Phone | | + + + | Preferred Language | Unknown | + + + | Marital Status | Legally | + + + | Anabaptist Affiliation | Unknown | + + + | Race | Unknown | + + + | Ethnic Group | Unknown | + + + Author + + + | Author | [facility] | | | and Mattana | + + + | Organization | [facility] | | | and Mattana [...] Team Providers + +------+ + | Care Membership Sales Advisor Name | Role | Phone | + +------+ + | Christopher Finn MD | PCP | | + +------+ + Reason for Visit +--------+ + | Reason | Comments | +--------+ + | Apnea | | +--------+ + Encounter Details +--------+---------+ + + + | Date | Type | Department | Care Team | Description | +--------+---------+ + + + | 09/24/ | Office | [facility] | Bismark Osorio | SANTOS (obstructive | | 2013 | Visit | SLEEP DISORDER [address] | [address] | sleep apnea) | | | | [address] [place] | [address] [place] | (Primary Dx) | | | | [place] [address] | [place] [address] | | | | | [phone] | [phone] | | | | | | | | +--------+---------+ + + + [...] + + + | Blood Pressure | 112/78 | 09/24/2012 11:35 AM | | | | | PST | | + + + + + | Pulse | 72 | 09/24/2012 11:35 AM | | | | | PST | | + + + + + | Temperature | - | - | | + + + + + | Respiratory Rate | 16 | 09/24/2012 11:35 AM | | | | | PST | | + + + + + | Oxygen Saturation | - | - | | + + + + + | Inhaled Oxygen | - | - | | | Concentration | | | | + + + + + | Weight | 101.7 kg (224 lb 1.6 | 09/24/2012 11:35 AM | | | | oz) | PST | | + + + + + | Height | - | - | | + + + + + | Body Mass Index | 39.7 | 08/25/2012 1:53 PM | | | | | PST | | + + + + + documented in this encounter Patient Instructions Patient Instructions Bismark Osorio Jr., MD - 09/24/2012 11:39 AM PSTYou have Obstructive Sleep Apnea. Obstructive Sleep Apnea Overview: During non-dream (nonREM) sleep the skeletal muscles relax and in dream (REM) sleep the ske letal muscles are paralyzed. The muscles that support the back of the throat (the tongue in particular) also relax during NREM sleep and are paralyzed in REM sleep and when this occurs , the back of the throat collapses some. In some patients with a smaller back of the throat, this can result in obstruction to the flow of air. This is fundamentally what occurs in SANTOS . This can cause repetitive obstruction to the flow of air all night long cause a person wit h SANTOS to awaken repeatedly at night to "open" the back of the throat. If airflow is signific antly restricted, blood oxygen levels can fall. The combination of the repetitive awakenings at night and low oxygen levels lead to numerous other physiologic abnormalities which can r esult in nocturia, nocturnal heartburn, night sweats, morning dry mouth, morning headache, a nd daytime fatigue/sleepiness. Additionally, SANTOS can cause hypertension and it dramatically increases the risk of heart disease, heart attack, and stroke. It may play a causative role in obesity and AODM. Untreated SANTOS also dramatically increases the risk of fall asleep car a ccidents. Treatment can help with all of these issues. Wake up at 8am every day and get as much bright light as possible in the morning and all da y long. No naps. Limit caffeine to 2-4 beverages before noon and none after noon. Bedtime no earlier than Midnight Wear your CPAP at all times while sleeping. documented in this encounter Progress Notes Bismark Osorio Jr., MD - 09/24/2012 11:53 AM PSTFormatting of this note might be differen t from the original. Kathy Moya underwent attended polysomnography on 09/17/2012 which revealed a latency to sl eep onset of 14 minutes and a sleep efficiency of 92.0%. The percentages of the various stag es of sleep were Normal. There appeared to be "rebounds" of both N3 and REM sleep suggesting that this was a better than usual night's sleep. The arousal index was 14.1 which is normal . The Respiratory Disturbance Index was 16.6; the Apnea-Hypopnea Index was 14.0; and the Major Assembly Lineman ea-Index was 7.6. The Respiratory Arousal Index was 6.4. The bret oxygen saturation record ed during sleep was 76.0%. The patient spent 11.7 minutes with an oxygen saturation of less than 88%. There were 0 Periodic Limb Movements and the PLMS Arousal Index was 0.0. These res ults were reviewed with her. A: SANTOS: I've discussed this again with her. I am recommending CPAP therapy. The mechanisms of action of CPAP in treating SANTOS were discussed in detail with the patient. I've discussed desensitization techniques as well as some imagery techniques that can be helpful. I've disc ussed the use of heated humidity. And I've discussed our PAP Compliance Clinic. P: CPAP 5-15cm while sleeping. Patient Instructions You have Obstructive Sleep Apnea. Obstructive Sleep Apnea Overview: During non-dream (nonREM) sleep the skeletal muscles relax and in dream (REM) sleep the ske letal muscles are paralyzed. The muscles that support the back of the throat (the tongue in particular) also relax during NREM sleep and are paralyzed in REM sleep and when this occurs , the back of the throat collapses some. In some patients with a smaller back of the throat, this can result in obstruction to the flow of air. This is fundamentally what occurs in SANTOS . This can cause repetitive obstruction to the flow of air all night long cause a person wit h SANTOS to awaken repeatedly at night to "open" the back of the throat. If airflow is signific antly restricted, blood oxygen levels can fall. The combination of the repetitive awakenings at night and low oxygen levels lead to numerous other physiologic abnormalities which can r esult in nocturia, nocturnal heartburn, night sweats, morning dry mouth, morning headache, a nd daytime fatigue/sleepiness. Additionally, SANTOS can cause hypertension and it dramatically increases the risk of heart disease, heart attack, and stroke. It may play a causative role in obesity and AODM. Untreated SANTOS also dramatically increases the risk of fall asleep car a ccidents. Treatment can help with all of these issues. Wake up at 8am every day and get as much bright light as possible in the morning and all da y long. No naps. Limit caffeine to 2-4 beverages before noon and none after noon. Bedtime no earlier than Midnight Wear your CPAP at all times while sleeping. F/u early next week in PAP Compliance Clinic. Today, 15 minutes was spent face to face with the patient; the majority of time was spent kari carlos. CC: Dr. Yuridia Finn documented in th is encounter Plan of Treatment Not on filedocumented as of this encounter Visit Diagnoses + + | Diagnosis | + + | SANTOS (obstructive sleep apnea) - Primary Obstructive sleep apnea (adult) (pediatric) | + + documented in this encounter
--- OUTSIDE RECORDS SUMMARY | ~2019-12-02 | XMS | Encounter Summary ---
Demographics + + + | Address | [address] | | | [place] [address] | + + + | Home Phone | | + + + | Preferred Language | Unknown | + + + | Marital Status | Single | + + + | Episcopal Affiliation | NON | + + + [...] [place] | | | | | [address] | | + + + + + Care Team Providers + +------+ + | Care Wharfinger Chief Name | Role | Phone | + [...] [facility] | | | | | | [address] | | | | | | [address] [facility] | | | | | | Pav[facility], [address]rd Floor | | | | | | [place], [place] | | | | | | [address] | | | | | | [phone] | | | +--------+ + + + [...]
--- OUTSIDE RECORDS SUMMARY | ~2019-12-02 | XMS | Encounter Summary ---
Demographics + + + | Address | [address] | | | [place] [address] | + + + | Home Phone | | + + + | Preferred Language | Unknown | + + + | Marital Status | Legally | + + + | Amish Affiliation | Unknown | + + + | Race | Unknown | + + + | Ethnic Group | Unknown | + + + Author + + + | Author | [facility] | | | and [place]ana | + + + | Organization | [facility] | | | and Mattana [...] Team Providers + +------+ + | Care Clinical Account Specialist Name | Role | Phone | + +------+ + PCP | Unavailable | + +------+ + Encounter Details +--------+ + + + + | Date | Type | Department | Care Team | Description | +--------+ + + + + | 07/13/ | Hospital | [facility] | Mario Alberto Doll, | Unspecified Chest | | 2006 | Encounter | [facility] [place] | MD [address] | Pain | | | | CLINICAL DECISION | [place] [address] | | | | | [address] [facility] | [phone] | | | | | [place], [place] | | | | | | [address] | | | | | | [phone] | | | +--------+ + + + [...]
--- OUTSIDE RECORDS SUMMARY | ~2019-12-02 | XMS | Encounter Summary ---
Demographics + + + | Address | [address] | | | [place] [address] | + + + | Home Phone | | + + + | Preferred Language | Unknown | + + + | Marital Status | Legally | + + + | Yarsani Affiliation | Unknown | + + + | Race | Unknown | + + + | Ethnic Group | Unknown | + + + Author + + + | Author | [facility] | | | and Mattana | + + + | Organization | [facility] | | | and [...] Team Providers + +------+ + | Care Store Specialist Name | Role | Phone | + +------+ + PCP | Unavailable | + +------+ + Encounter Details +--------+ + + + + | Date | Type | Department | Care Team | Description | +--------+ + + + + | 09/28/ | Hospital | [facility] | | | | 2010 | Encounter | MED CTR GENERIC OP | | | | | | CONV DEPT [address] | | | | | | [address], | | | | | | [place] [address] | | | | | | [phone] | | | +--------+ + + + [...]
--- OUTSIDE RECORDS SUMMARY | ~2019-12-02 | XMS | Encounter Summary ---
Demographics + + + | Address | [address] | | | [place] [address] | + + + | Home Phone | | + + + | Preferred Language | Unknown | + + + | Marital Status | Single | + + + | Yarsanism Affiliation | NON | + + + | Race | White | + + + | Ethnic Group | Not or | + + + Author + + + | Author | [facility] | + + + | Organization | [facility] | + + + | Address | Unknown | + + + | Phone | Unavailable | + + + Support + + + + + | Name | Relationship | Address | Phone | + + + + + | Adeel Matthews | ECON | [address] | | | | | [place] | | | | | [address] | | + + + + + Care Team Providers + +------+ + | Care Gas Pump Attendant Name | Role | Phone | + +------+ + PCP | Unavailable | + +------+ + Encounter Details +--------+ + + + + | Date | Type | Department | Care Team | Description | +--------+ + + + + | 05/04/ | Respiratory | Respiratory | Flavia Watt | | | 2006 | Therapy | Therapy [address] [facility] | [phone] | | | | | [address] | | | | | | Mailcode: U[facility]13 | | | | | | [place], [place] | | | | | | [address] | | | | | | [phone] | | | +--------+ + + + [...] following:FVC=3.19FVC% | | | | | | predicted=84UAV6=7.55FEV | | | | | | 1% [...] ml/min/mmHgDsb% | | | | | | itbyjwqbv=395M/VA=4.53D/ | | | | | | VA% predicted=91VA (sb) | | | | | | (L)=4.84VA (sb) (L)% | | | | | | dogyqcuew=702Axwqjvdy | | | | | | for Hb of 14.1 | | | | | | gm/dL.Electronically | | | | | | Signed by: Melissa Malik, | | | | | | MANUFACTURING QUALITY INSPECTOR | | | | + + + [...] [facility] | [address] | [place], [place] | | | THERAPY | [address] | [address] | | + + + + + | [facility] | [address] | [place], [place] | | | THERAPY | [address] | [address] | | + + + + + documented in this encounter Visit Diagnoses Not on filedocumented in this encounter"
--- OUTSIDE RECORDS SUMMARY | ~2019-12-02 | XMS | Encounter Summary ---
Demographics + + + | Address | [address] | | | [place] [address] | + + + | Home Phone [...] + + | Author | [facility] | | | and Mattana | + + + | Organization | [facility] | [...] Team Providers + +------+ + | Care Wool Handler Name | Role | Phone | + +------+ + PCP | Unavailable | + +------+ + Encounter Details +--------+ + + + + | Date | Type | Department | Care Team | Description | +--------+ + + + + | 05/01/ | [facility] | [facility] | Christopher Finn | | | 2010 | Encounter | MED CTR LABORATORY | MD [place] | | | | | [address] | [address] [place], [place] | | | | | [place] | [address] | | | | | [address] | | | | | | [phone] | | | +--------+ + + + [...] | + +--------+ + + + | CBC WITH | Routin | 05/01/2011 | | Results for this | | DIFFERENTIAL | e | 11:57 AM | | procedure are in the | | | | PDT | | results section. | + +--------+ + + + | COMPREHENSIVE | Routin | 05/01/2011 | | Results for this | | METABOLIC PANEL | e | 11:57 AM | | procedure are in the | | | | PDT | | results section. | + +--------+ + + + documented in this encounter Results CBC with Differential (05/01/2011 11:57 AM PDT) + +-------+ + + + | Component | Value | Ref Range | Performed | Pathologist | | | | | At | Signature | + +-------+ + + + | WBC | 10.4 | 4.0 - 11.0 K/uL | [facility] | | | | | [facility] | | | | | | [facility] | | | | | | [facility] - | | | | | | LABORATORY | | + +-------+ + + + | RBC | 4.78 | 3.70 - 5.20 | [facility] | | | | | M/uL | [facility] | | | | | | MEDICAL | | | | | | CENTER - | | | | | | LABORATORY | | + +-------+ + + + | Hemoglobin | 14.7 | 11.5 - 16.0 | [facility] | | | | | gm/dL | [facility] | | | | | | [facility]ICAL | | | | | | CENTER - | | | | | | LABORATORY | | + +-------+ + + + | Hematocrit | 43.9 | 34.0 - 47.0 % | [facility] | | | | | | [facility] | | | | | | [facility]ICAL | | | | | | CENTER - | | | | | | LABORATORY | | + +-------+ + + + | MCV | 91.8 | 83.0 - 101.0 fL | [facility] | | | | | | [facility] | | | [facility] | | [facility]ICAL | | | | | | CENTER - | | | | | | LABORATORY | | + +-------+ + + + | MCH | 30.8 | 28.0 - 35.0 pg | [facility] | | | | | | [facility] | | | | | | [facility]ICAL | | | | | | CENTER - | | | | | | LABORATORY | | + +-------+ + + + | MCHC | 33.5 | 32.0 - 36.0 | [facility] | | | | | g/dL | [facility] | | [facility] | | | MEDICAL | | | | | | CENTER - | | | | | | LABORATORY | | + +-------+ + + + | RDW-CV | 14.4 | <15.0 % | [facility] | | | | | | [facility] | | | | | | MEDICAL | | | | | | CENTER - | | | | | | LABORATORY | | + +-------+ + + + | Platelet | 214 | 140 - 440 K/uL | [facility] | | | Count | | | [facility] | | | | | | MEDICAL | | | | | | CENTER - | | | | | | LABORATORY | | + +-------+ + + + | % | 63.8 | 45 - 75 % | [facility] | | | Neutrophils | | | [facility] | | | | | | MEDICAL | | | | | | CENTER - | | | | | | LABORATORY | | + +-------+ + + + | % | 26.2 | 20 - 45 % | [facility] | | | Lymphocytes | | | [facility] | | | | | | MEDICAL | | | | | | CENTER - | | | | | | LABORATORY | | + +-------+ + + + | % Monocytes | 6.5 | 4 - 12 % | [facility] | | | | | | [facility] | | | | | | MEDICAL | | | | | | CENTER - | | | | | | LABORATORY | | + +-------+ + + + | % | 2.9 | 0 - 5 % | [facility] | | | Eosinophils | | | [facility] | | | | | | MEDICAL | | | | | | CENTER - | | | | | | LABORATORY | | + +-------+ + + + | % Basophils | 0.6 | 0 - 1 % | [facility] | | | | | | [facility] | | | | | | [facility]ICAL | | | | | | CENTER - | | | | | | LABORATORY | | + +-------+ + + + | Absolute | 6.6 | 1.5 - 6.6 K/uL | [facility] | | | Neutrophils | | | [facility] | | | | | | MEDICAL | | | | | | CENTER - | | | | | | LABORATORY | | + +-------+ + + + | Absolute | 2.7 | 0.6 - 3.2 K/uL | [facility] | | | Lymphocytes | | | [facility] | | | | | | [facility]ICAL | | | | | | CENTER - | | | | | | LABORATORY | | + +-------+ + + + | Absolute | 0.7 | 0.0 - 1.0 K/uL | [facility] | | | Monocytes | | | [facility] | | | | | | [facility]ICAL | | | | | | CENTER - | | | | | | LABORATORY | | + +-------+ + + + | Absolute | 0.3 | 0.0 - 0.4 K/uL | [facility] | | | Eosinophils | | | [facility] | | | | | | [facility]ICAL | | | | | | CENTER - | | | | | | LABORATORY | | + +-------+ + + + | Absolute | 0.1 | 0.0 - 0.1 K/uL | [facility] | | | Basophils | | | [facility] | | | | | | MEDICAL | | | | | | CENTER - | | | | | | LABORATORY | | + +-------+ + + + + + | Specimen | + + | | + + + + + + + | Performing | Address | City/State/Zipcode | Phone Number | | Organization | | | | + + + + + | [facility] | [address] | [place], [place] | [phone] | | [facility] | | [address] | | | - LABORATORY | | | | + + + + + | [facility] | [address] | [place], [place] | | | [facility] | | [address] | | | - LABORATORY | | | | + + + + + Comprehensive Metabolic Panel (05/01/2011 11:57 AM PDT) + + + + + + | Component | Value | Ref Range | Performed | Pathologist | | | | | At | Signature | + + + + + + | Glucose | 87 | 70 - 109 mg/dL | [facility] | | | | | | [facility] | | | | | | MEDICAL | | | | | | CENTER - | | | | | | LABORATORY | | + + + + + + | Calcium | 9.5 | 8.3 - 10.5 | [facility] | | | | | mg/dL | [facility] | | | | | | MEDICAL | | | | | | CENTER - | | | | | | LABORATORY | | + + + + + + | Alkaline | 70 | 40 - 110 IU/L | [facility] | | | Phosphatase | | | [facility] | | | | | | MEDICAL | | | | | | CENTER - | | | | | | LABORATORY | | + + + + + + | AST | 23 | 10 - 42 IU/L | [facility] | | | | | | [facility] | | | | | | MEDICAL | | | | | | CENTER - | | | | | | LABORATORY | | + + + + + + | ALT | 30 | 6 - 45 IU/L | [facility] | | | | | | [facility] | | | | | | MEDICAL | | | | | | CENTER - | | | | | | LABORATORY | | + + + + + + | Bilirubin | 0.6 | 0.2 - 1.0 mg/dL | [facility] | | | Total | | | [facility] | | | | | | MEDICAL | | | | | | CENTER - | | | | | | LABORATORY | | + + + + + + | Total | 7.2 | 6.0 - 7.8 gm/dL | [facility] | | | Protein | | | [facility] | | | | | | MEDICAL | | | | | | CENTER - | | | | | | LABORATORY | | + + + + + + | Albumin | 3.7 | 3.2 - 5.0 gm/dL | [facility] | | | | | | [facility] | | | | | | MEDICAL | | | | | | CENTER - | | | | | | LABORATORY | | + + + + + + | BUN | 16 | 7 - 18 mg/dL | [facility] | | | | | | [facility] | | | | | | MEDICAL | | | | | | CENTER - | | | | | | LABORATORY | | + + + + + + | Creatinine | 0.87 | 0.60 - 1.30 | [facility] | | | | | mg/dL | [facility] | | | | | | MEDICAL | | | | | | CENTER - | | | | | | LABORATORY | | + + + + + + | Estimated | >60Comment: For | >60 mL/min/A | [facility] | | | GFR | -Americans, | | [facility] | | | | please multiply the | | MEDICAL | | | | result by 1.210 | | CENTER - | | | | This is an estimated | | LABORATORY | | | | GFR and is based on | | | | | | a standard body | | | | | | mass and serum | | | | | | creatinine | | | | + + + + + + | BUN/Creatin | 18.4 | 12 - 20 | [facility] | | | ine Ratio | | | [facility] | | | | | | MEDICAL | | | | | | CENTER - | | | | | | LABORATORY | | + + + + + + | Na | 140 | 136 - 149 mEq/L | [facility] | | | | | | [facility] | | | | | | MEDICAL | | | | | | CENTER - | | | | | | LABORATORY | | + + + + + + | K | 4.1 | 3.5 - 5.1 mEq/l | [facility] | | | | | | [facility] | | | | | | MEDICAL | | | | | | CENTER - | | | | | | LABORATORY | | + + + + + + | Cl | 103 | 98 - 109 mEq/l | [facility] | | | | | | [facility] | | | | | | MEDICAL | | | | | | CENTER - | | | | | | LABORATORY | | + + + + + + | CO2 | 31 | 24 - 31 mEq/L | [facility] | | | | | | [facility] | | | | | | MEDICAL | | | | | | CENTER - | | | | | | LABORATORY | | + + + + + + | Anion Gap | 10.1 | 6.0 - 17.0 | [facility] | | | | | | [facility] | | | | | | MEDICAL | | | | | | CENTER - | | | | | | LABORATORY | | + + + + + + + + | Specimen | + + | | + + + + + + + | Performing | Address | City/State/Zipcode | Phone Number | | Organization | | | | + + + + + | [facility] | [address] | [place] | [phone] | | [facility] | | [address] | | | - LABORATORY | | | | + + + + + | [facility] | [address] | [place] | | | [facility] | | [address] | | | - LABORATORY | | | | + + + + + documented in this encounter Visit Diagnoses Not on filedocumented in this encounter"
--- OUTSIDE RECORDS SUMMARY | ~2019-12-02 | XMS | Encounter Summary ---
Demographics + + + | Address | [address] | | | [place] [address] | + + + | Home Phone | | + + + | Preferred Language | Unknown | + + + | Marital Status | Single | + + + | Methodist Affiliation | NON | + + + | Race | White | + + + | Ethnic Group | Not or | + + + Author + + + | Author | [facility] | + + + | Organization | [facility] | + + + | Address | Unknown | + + + | Phone | Unavailable | + + + Support + + + + + | Name | Relationship | Address | Phone | + + + + + | Adeel Matthews | ECON | [address] | | | | | [place] | | | | | [address] | | + + + + + Care Team Providers + +------+ + | Care Hospital Receiving Clerk Name | Role | Phone | + +------+ + PCP | Unavailable | + +------+ + Encounter Details +--------+ + + + + | Date | Type | Department | Care Team | Description | +--------+ + + + + | 07/08/ | Results | Registration [id number] | Flavia Watt | | | 2005 | Only | [address] | [phone] | | | | | Rd Mailcode: [id number] | | | | | | [place], [place] | | | | | | [address] | | | | | | [phone] | | | +--------+ + + + [...]
--- OUTSIDE RECORDS SUMMARY | ~2019-12-02 | XMS | Encounter Summary ---
Demographics + + + | Address | [address] | | | [place] [address] | + + + | Home Phone | | + + + | Preferred Language | Unknown | + + + | Marital Status | Legally | + + + | Synagogue Affiliation | Unknown | + + + | Race | Unknown | + + + | Ethnic Group | Unknown | + + + Author + + + | Author | [facility] | | | and [place] | + + + | Organization | [facility] | | | and [place]ana [...] Team Providers + +------+ + | Care Numerical Control Machine Operator Name | Role | Phone | + +------+ + | Froy Daigle | PCP | | | MD | | | + +------+ + Encounter Details +--------+ + + + + | Date | Type | Department | Care Team | Description | +--------+ + + + + | 03/03/ | Hospital | [facility] | Conversion | Unknown cause of | | 2015 | Encounter | CONVERSION DEP [address] | Transaction, | injury | | | | SHANEL EM | Provider Unknown | | | | | [place] | [phone] | | | | | [address] | | | | | | [phone] | | | +--------+ + + + [...] +---------+ + + | Uncoded Medication | [id number] | 1 | 0 | 12/15/19 | | | | Pillows cushion or | Device | | 14 | | | | nasal mask cushion | | | | | | | (up to 2 per month); | | | | | | | [id number] | | | | | | | [...]
--- OUTSIDE RECORDS SUMMARY | ~2019-12-02 | XMS | Encounter Summary ---
Demographics + + + | Address | [address] | | | [place] [address] | + + + | Home Phone | | + + + | Preferred Language | Unknown | + + + | Marital Status | Legally | + + + | Baptist Affiliation | Unknown | + + + | Race | Unknown | + + + | Ethnic Group | Unknown | + + + Author + + + | Author | [facility] | | | and [place]ana | + + + | Organization | [facility] | | | and [...] Providers + +------+ + | Care Store Receiver Name | Role | Phone | + [...] + | 12/14/ | Office | [facility] | Chris Guallpa PA | SANTOS on CPAP (Primary | | 2014 | Visit | SLEEP DISORDER [address] | [address] | Dx) | | | | [address] [place] | [place] [address] | | | | | [place] [address] | [address] | | | | | [phone] | | | +--------+---------+ + + + [...] Insomnia Severity Index Insomnia Severity Index 4 [place] Sleepiness Scale Sitting and reading 1 Watching [...] appro piate paperwork. Fifteen minutes were spent [id number], with the majority of time spent i [...]
--- OUTSIDE RECORDS SUMMARY | ~2019-12-02 | XMS | Encounter Summary ---
Demographics + + + | Address | [address] | | | [place] [address] | + + + | Home Phone | | + + + | Preferred Language | Unknown | + + + | Marital Status | Single | + + + | Sabianist Affiliation | NON | + + + | Race | White | + + + | Ethnic Group | Not or | + + + Author + + + | Author | [facility] | + + + | Organization | [facility] | + + + | Address | Unknown | + + + | Phone | Unavailable | + + + Support + + + + + | Name | Relationship | Address | Phone | + + + + + | Adeel Matthews | ECON | [address] | | | | | [place] | | | | | [address] | | + + + + + Care Team Providers + +------+ + | Care Demand Generation Manager Name | Role | Phone | [...] [id number] | | | | | | [place], [place] | | | | | | [address] | | | | | | [phone] | | | +--------+ + + + [...]
--- OUTSIDE RECORDS SUMMARY | ~2019-12-02 | XMS | Encounter Summary ---
Demographics + + + | Address | [address] | | | [place] [address] | + + + | Home Phone | | + + + | Preferred Language | Unknown | + + + | Marital Status | Legally | + + + | Baptism Affiliation | Unknown | + + + | Race | Unknown | + + + | Ethnic Group | Unknown | + + + Author + + + | Author | [facility] | | | and [place] | + + + | Organization | [facility] | | | and [...] Team Providers + +------+ + | Care Program Services Planner Name | Role | Phone | + [...] + + | 09/24/ | Office | [facility] | Bism[place] Osorio | SANTOS (obstructive | | 2013 | Visit | SLEEP DISORDER [address] | [address] | sleep apnea) | | | | [address] [place] | [address] [place] | (Primary Dx) | | | | [place] [address] | [place] [address] | | | | | [phone] | [phone] | | | | | | | [...] the Apnea-Hypopnea Index was 14.0; and the Track Grinder ea-Index was 7.6. The Respiratory Arousal Index [...]
--- OUTSIDE RECORDS SUMMARY | ~2019-12-02 | XMS | Encounter Summary ---
Demographics + + + | Address | [address] | | | [place] [address] | + + + | Home Phone | | + + + | Preferred Language | Unknown | + + + | Marital Status | Legally | + + + | Sabianism Affiliation | Unknown | + + + | Race | Unknown | + + + | Ethnic Group | Unknown | + + + Author + + + | Author | [facility] | | | and [place]ana | + + + | Organization | [facility] | | | and [...] Team Providers + +------+ + | Care Gold Stamper Name | Role | Phone | + +------+ + PCP | Unavailable | + +------+ + Encounter Details +--------+ + + + + | Date | Type | Department | Care Team | Description | +--------+ + + + + | 05/01/ | [facility] | [facility] | Christopher Finn | | | 2010 | Encounter | MED CTR LABORATORY | MD [place] [address] | | | | | [address] | [address] [place], [place] | | | | | [place] | [address] | | | | | [address] | | | | | | [phone] | | | +--------+ + + + [...] + | [facility] | [address] | [place], [place] | [phone] | | [facility] | | [address] | | | - LABORATORY | | | | + + + + + | [facility] | [address] | [place], [place] | | | [facility] | | [address] | | | - LABORATORY | | [...] [address] | [place] | [phone] | | [facility] | | [address] | | | - LABORATORY | | | | + + + + + | [facility] | [address] | [place] | | | [facility] | | [address] | | | - LABORATORY | | | | + + + + + documented in this encounter Visit Diagnoses Not on filedocumented in this encounter"
--- OUTSIDE RECORDS SUMMARY | ~2019-12-02 | XMS | Encounter Summary ---
Demographics + + + | Address | [address] | | | [place] [address] | + + + | Home Phone | | + + + | Preferred Language | Unknown | + + + | Marital Status | Legally | + + + | Holiness Affiliation | Unknown | + + + | Race | Unknown | + + + | Ethnic Group | Unknown | + + + Author + + + | Author | [facility] | | | and [place]ana | + + + | Organization | [facility] | | | and Mattana | [...] Team Providers + +------+ + | Care Smoking Pipe Repairer Name | Role | Phone | [...] + | 01/21/ | Office | [facility] | Chris Guallpa PA | SANTOS on CPAP (Primary | | 2013 | Visit | SLEEP DISORDER [address] | [address] | Dx) | | | | [address] [place] | [place] | | | | | [place] [address] | [address] | | | | | [phone] | | | +--------+---------+ + + + [...] nasal pillows obtained from: [facility] pressure is: 5-20 cm [...] a prescription to [facility] in [place] to convert her ResMed S9 to purchase. I have recommended that she touch base with her medical supplier twice per year to ensure that her equipment is satisfactory. I will follow up again in 1 year, sooner prn. At that time we will reassess with all appro piate paperwork. Fifteen minutes were spent [id number], with the majority of time spent i [...]
--- OUTSIDE RECORDS SUMMARY | ~2019-12-02 | XMS | Encounter Summary ---
Demographics + + + | Address | [address] | | | [place] [address] | + + + | Home Phone | | + + + | Preferred Language | Unknown | + + + | Marital Status | Single | + + + | Mandaen Affiliation | NON | + + + [...] [place] | | | | | [address] | | + + + + + Care Team Providers + +------+ + | Care Wastewater Project Engineer Name | Role | Phone | + [...] Rd | | | | | | [place] | | | | | | [address] | | | +--------+ + + + [...] as of this encounter Progress Notes Interface, Gym Teacher In - 02/24/2007 2:30 AM PDT [id number] NITA Blair [id number] Clinic Date: 02/03/2007 Clinic: Pulmonary/Followup Note Referring Physician: Froy Daigle M.D. Reason For Followup: Pulmonary nodule. This is a very pleasant 51-year-old woman who is referred to us from [place], [place], on October 17, 2006. At that [...] CT scan of the chest here at [facility] with limited cuts to the right upper [...] Song D.O. Kamilah Marte M.D. / HS [id number] / [id number] / [id number] / [id number] cc: Froy Daigle M.D. [address] [place] [address] Electronically signed by Kamilah Marte 02-23-2007 09:36:25 AM nterface, Gym Teacher In - 02/24/2007 2:30 AM PDT [id number] NITA Blair [id number] Clinic Date: 02/03/2007 Clinic: Pulmonary I have interviewed and examined Ms. Moya. I have reviewed her recent CT scan and chest x-ray. I agree with Dr. Song's dictated note. The patient has a lesion in the right upper lobe noted back in June 2006. She remains asymptomatic. She was hospitalized recently for a myocardial infarction. She has a followup visit with the fitness sales consultant later this week. CT scan shows slight [...] scan of the chest in 3 months. Kamilah Marte M.D. / HS [id number] / [id number] / [id number] / [id number] Electronically signed by Kamilah Marte 02-23-2007 09:36:45 AM documented in this encounter Plan of Treatment Not on filedocumented as of this encounter Visit Diagnoses Not on filedocumented in this encounter"
--- OUTSIDE RECORDS SUMMARY | ~2019-12-02 | XMS | Encounter Summary ---
Demographics + + + | Address | [address] | | | [place] [address] | + + + | Home Phone | | + + + | Preferred Language | Unknown | + + + | Marital Status | Legally | + + + | Mandaen Affiliation | Unknown | + + + | Race | Unknown | + + + | Ethnic Group | Unknown | + + + Author + + + | Author | [facility] | | | and Mattana | + + + | Organization | [facility] | | | and Mattana [...] Team Providers + +------+ + | Care Naval Police Coxswain Name | Role | Phone | + +------+ + | Christopher Finn MD | PCP | | + +------+ + Reason for Visit + + + | Reason | Comments | + + + | Medication Refill | | + + + Encounter Details +--------+--------+ + + + | Date | Type | Department | Care Team | Description | +--------+--------+ + + + | 03/01/ | Refill | [facility] | Chris Guallpa PA | Medication Refill | | 2012 | | SLEEP DISORDER [address] | [address] | | | | | [address] [place] | [place], [place] | | | | | [place] [address] | [address] | | | | | [phone] | | | +--------+--------+ + + + Social History + + [...] + | Diagnosis | + + | Obstructive sleep apnea (adult) (pediatric) - Primary | + + documented in this encounter"
--- OUTSIDE RECORDS SUMMARY | ~2019-12-02 | XMS | Encounter Summary ---
Demographics + + + | Address | [address] | | | [place] [address] | + + + | Home Phone | | + + + | Preferred Language | Unknown | + + + | Marital Status | Single | + + + | Scientology Affiliation | NON | + + + [...] [place] | | | | | [address] | | + + + + + Care Team Providers + +------+ + | Care Gyroscope Repairer Name | Role | Phone | + +------+ + PCP | Unavailable | + +------+ + Encounter Details +--------+ + + + + | Date | Type | Department | Care Team | Description | +--------+ + + + + | 12/12/ | Office | UNKNOWN DEPARTMENT | Note, Outpatient | Progress Note | | 2006 | Visit-Trans | [address] | Clinic | | | | [place] | [address] | | | | | | [place], [place] | | | | | | [address] | | | +--------+ + + + [...] as of this encounter Progress Notes Interface, Die Presser In - 12/24/2006 2:33 AM PDT [id number] NITA Blair [id number] Clinic Date: 12/12/2006 Clinic: TELEPHONE CONVERSATION I reviewed the results of Kathy 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 Additionally, her HIV test is nonreactive. I called the patient to share these results with her and to check in on her. I left a message on her answering machine to call the Pulmonary Clinic. She is scheduled to come in for a followup appointment to see me on January 16, 2007, and I would like her to keep this appointment, and at that point, we will evaluate her with a PA and lateral chest x-ray prior to the appointment. Emelina Wilder M.D. / BEREKET [id number] / [id number] / [id number] / cc: Froy Daigle M.D. [address] [place] [address] FAX: [phone] Akbar Mendoza M.D. Electronically signed by Emelina Wilder 12-23-2006 07:11:11 AM documented in this encounter Plan of Treatment Not on filedocumented as of this encounter Visit Diagnoses Not on filedocumented in this encounter"
--- OUTSIDE RECORDS SUMMARY | ~2019-12-02 | XMS | Encounter Summary ---
Demographics + + + | Address | [address] | | | [place] [address] | + + + | Home Phone | | + + + | Preferred Language | Unknown | + + + | Marital Status | Legally | + + + | Scientology Affiliation | Unknown | + + + | Race | Unknown | + + + | Ethnic Group | Unknown | + + + Author + + + | Author | [facility] | | | and Mattana | + + + | Organization | [facility] | | | and [...] Team Providers + +------+ + | Care Public Safety Police Name | Role | Phone | + [...] | SLEEP DISORDER [address] | [address] | | | | | [address] [place] | [place], [place] | | | | | [place] [address] | [address] | | | | | [phone] | | | +--------+--------+ + + + [...]
--- OUTSIDE RECORDS SUMMARY | ~2019-12-02 | XMS | Encounter Summary ---
Demographics + + + | Address | [address] | | | [place] [address] | + + + | Home Phone | | + + + | Preferred Language | Unknown | + + + | Marital Status | Single | + + + | Confucianist Affiliation | NON | + + + | Race | White | + + + | Ethnic Group | Not or | + + + Author + + + | Author | [facility] | + + + | Organization | [facility] | + + + | Address | Unknown | + + + | Phone | Unavailable | + + + Support + + + + + | Name | Relationship | Address | Phone | + + + + + | Adeel Matthews | ECON | [address] | | | | | [place] | | | | | [address] | | + + + + + Care Team Providers + +------+ + | Care Combination Machine Tender Name | Role | Phone | + +------+ + PCP | Unavailable | + +------+ + Encounter Details +--------+ + + + + | Date | Type | Department | Care Team | Description | +--------+ + + + + | 05/05/ | Office | UNKNOWN DEPARTMENT | Clinic, Pulmonary | Progress Note | | 2006 | Visit-Trans | [address] | | | | | [place] | [address] | | | | | | [place] | | | | | | [address] | | | +--------+ + + + [...] as of this encounter Progress Notes Interface, Wet Process Assistant Head Miller In - 05/21/2007 2:27 AM PDT [id number] NITA KATHY Johnnie [id number] Clinic Date: 05/05/2007 Clinic: Pulmonary Primary Care Physician: Dr. Froy Daigle. Staffing physician is Dr. Kamilah Marte, who has seen the patient and agrees with below. Problem List: 1. Right upper lobe posterior segment nodule dating back to June 2006. At that time, it was 1.4 x 1.7 cm with a followup CT scan in December 2006 showing it to be 1.7 x 1.6, and now a followup CT scan today showing it to be 1 cm in size. 2. History of hysterectomy for cervical cancer. 3. Tobacco cessation, currently on Chantix. Subjective: This is a very pleasant 52-year-old female who I have last seen here in Pulmonary Clinic on 02/03/2007. The patient today denies any shortness of breath, cough, or chest pain. She did have a recent cardiac stress test which was negative for disease. The patient has stopped smoking and is continuing on her Chantix therapy at 0.5 mg p.o. b.i.d. She offers currently no other complaints today. Medications: Tylenol 325 as needed, aspirin 325 a day, Pepcid 20 twice a day, metoprolol 25 b.i.d., potassium 10 a day, Chantix 0.5 b.i.d., Levoxyl 0.05 a day, and Claritin 1 a day. Objective: Her vital signs today, weight is 238.5, temperature 97.7, pulse of 88, respiratory rate 22, and blood pressure 126/78. HEENT: She is normocephalic and atraumatic. TMs are clear. Nares are patent. Heart: Positive S1 and S2. Pulmonary: Clear to auscultation. Abdomen: Soft, nontender, and nondistended. Extremities: No clubbing, cyanosis, or edema. Laboratory Values: An extensive review of her CT scan of her chest showed the nodular opacity in the location of previously larger cavitary nodule and is consistent with evolving infectious etiology such as cocci, lipomatous hypertrophy of the interatrial septum, possible ASD, and hepatic steatosis. Assessment and Plan: This is a very pleasant 52-year-old female who is here for followup of her right upper lobe pulmonary nodule which has decreased in size and is consistent currently with an infectious etiology such as coccidioidomycosis. At this time, we would recommend a repeat CT scan of her chest with limited cuts to the right upper lobe nodule in one year's time. At that time, we will follow up here in one year. Of note, the patient has had pulmonary function test performed. Her FEV1 was 2.55 which is 98% predicted; her FVC was 3.19 which is 97% predicted with a ratio of 80, and a DLCO of 122%. Again, the patient will follow up in one year's time. Over 40% of this visit was spent in counseling the patient in all of the above as well as reviewing her CT scan findings. Kenzie Song D.O. Kamilah Marte M.D. JON / BEREKET [id number] / [id number] / [id number] / cc: Froy Daigle M.D. Reviewed or Edited By Kenzie Song DO on 05-08-2007 Electronically signed by Kamilah Marte 05-20-2007 11:53:46 AM documented in this encounter Plan of Treatment Not on filedocumented as of this encounter Visit Diagnoses Not on filedocumented in this encounter"
--- OUTSIDE RECORDS SUMMARY | ~2019-12-02 | XMS | Encounter Summary ---
Demographics + + + | Address | [address] | | | [place] [address] | + + + | Home Phone [...] + + + | Author | [facility] | | | and Mattana | + + + | Organization | [facility] | | | and [...] Team Providers + +------+ + | Care Psychic Reader Name | Role | Phone | + +------+ + PCP | Unavailable | + +------+ + Encounter Details +--------+ + + + + | Date | Type | Department | Care Team | Description | +--------+ + + + + | 06/25/ | Hospital | [facility] | Christopher Finn | | | 2011 - | Encounter | MED CTR XRAY [address] | [address] [address] | | | | | [place] | [address] [place], [place] | | | 06/27/ | | [place] [address] | [address] | | | 2011 | | [phone] | | | +--------+ + + + [...] Performed At | + + + | [facility] | [place] | | Department [address] [facility] [place] [employer] [facility] | | [ rep [address]] [ rep [facility] | | st zip] Signed | - IMAGING | | | | | Patient Name: KATHY MOYA Physician: | | | TERR.20 : 1955 Age: 57 Sex: F Unit #: [id number] | | | Exam Date: 06/25/12 Location: [facility] | | | Report #: [id number] Page: | | | %(RAD)RES..mtdd.print.filter("pg") of %(RAD) | | | RES..mtdd.print.filter("tpg") | | | | | | Accession Number: [id number] | | | CT SCAN OF THE [...] | | Aakash Hardwick MD 06/26/12 1247 Loader Operator: | | | Adrianne Nguyen06/26/12 1308 Christopher Finn MD | | | | | + + + + + + + + | Performing | Address | City/State/Zipcode | Phone Number | | Organization | | | | + + + + + | [facility] | [address] | [place] | [phone] | | [facility] | | [address] | | | - IMAGING | | | | + + + + + documented in this encounter Visit Diagnoses Not on filedocumented in this encounter
--- OUTSIDE RECORDS SUMMARY | ~2019-12-02 | XMS | Encounter Summary ---
Demographics + + + | Address | [address] | | | [place] [address] | + + + | Home Phone | | + + + | Preferred Language | Unknown | + + + | Marital Status | Legally | + + + | Yazidi Affiliation | Unknown | + + + | Race | Unknown | + + + | Ethnic Group | Unknown | + + + Author + + + | Author | [facility] | | | and Mattana | + + + | Organization | [facility] | | | and Mattana | [...] Team Providers + +------+ + | Care Soft Sugar Supervisor Name | Role | Phone | [...] | SLEEP DISORDER [address] | [address] | Dx) | | | | [address] [place] | [place], [place] | | | | | [place] [address] | [id number] | | | | | [phone] | | | +--------+ + + + [...]
--- OUTSIDE RECORDS SUMMARY | ~2019-12-02 | XMS | Encounter Summary ---
Demographics + + + | Address | [address] | | | [place] [address] | + + + | Home Phone | | + + + | Preferred Language | Unknown | + + + | Marital Status | Legally | + + + | Protestant Affiliation | Unknown | + + + | Race | Unknown | + + + | Ethnic Group | Unknown | + + + Author + + + | Author | [facility] | | | and Mattana | + + + | Organization | [facility] | | | and Mattana [...] Team Providers + +------+ + | Care Lollypop Machine Operator Name | Role | Phone [...] + | 02/20/ | Office | [facility] | Chris Guallpa PA | SANTOS on CPAP (Primary | | 2015 | Visit | SLEEP DISORDER [address] | [address] | Dx) | | | | [address] [place] | [place], [place] | | | | | [place] [address] | [address] | | | | | [phone] | | | +--------+---------+ + + + [...] Insomnia Severity Index Insomnia Severity Index 1 [place] Sleepiness Scale Sitting and reading 1 Watching [...] pillows obtained from: [facility] [place] pressure is: 5-20 cm Median: 5.4 cm [...] appr opiate paperwork. Fifteen minutes were spent [id number], with the majority of time spent in [...]
--- OUTSIDE RECORDS SUMMARY | ~2019-12-02 | XMS | Encounter Summary ---
Demographics + + + | Address | [address] | | | [place] [address] | + + + | Home Phone [...] + + + | Author | [facility] | + + + | Organization | [facility] | + + + | Address | Unknown | + + + | Phone | Unavailable | + + + Support + + + + + | Name | Relationship | Address | Phone | + + + + + | Adeel Matthews | ECON | [address] | | | | | [place] | | | | | [address] | | + + + + + Care Team Providers + +------+ + | Care Senior Bi Architect Name | Role | Phone | + [...] [id number] | | | | | | [place], [place] | | | | | | [address] | | | | | | [phone] | | | +--------+ + + + [...]
--- OUTSIDE RECORDS SUMMARY | ~2019-12-02 | XMS | Encounter Summary ---
Demographics + + + | Address | [address] | | | [place] [address] | + + + | Home Phone [...] [place] | | | | | [address] | | + + + + + Care Team Providers + +------+ + | Care Taxi Dancer Name | Role | Phone | + [...] [address] | | | | | | [place] | | | | | | [address] | | | +--------+ + + + [...] as of this encounter Progress Notes Interface, Cement Tester Assistant In - 05/21/2007 2:27 AM PDT [id number] NITA KATHY Johnnie [id number] Clinic Date: 05/05/2007 Clinic: Pulmonary Primary Care [...] D.O. Kamilah Marte M.D. JON / BEREKET [id number] / [id number] / [id number] / cc: Froy Daigle M.D. Reviewed or Edited By Kenzie Song DO on 05-08-2007 Electronically signed by Kamilah Marte 05-20-2007 11:53:46 AM documented in this encounter Plan of Treatment Not on filedocumented as of this encounter Visit Diagnoses Not on filedocumented in this encounter"
--- OUTSIDE RECORDS SUMMARY | ~2019-12-02 | XMS | Encounter Summary ---
Demographics + + + | Address | [address] | | | [place] [address] | + + + | Home Phone | | + + + | Preferred Language | Unknown | + + + | Marital Status | Single | + + + | Druze Affiliation | NON | + + + | Race | White | + + + | Ethnic Group | Not or | + + + Author + + + | Author | [facility] | + + + | Organization | [facility] | + + + | Address | Unknown | + + + | Phone | Unavailable | + + + Support + + + + + | Name | Relationship | Address | Phone | + + + + + | Adeel Matthews | ECON | [address] | | | | | [place] | | | | | [address] | | + + + + + Care Team Providers + +------+ + | Care Oceanography Teacher Name | Role | Phone | [...] [id number] | | | | | | [place], [place] | | | | | | [address] | | | | | | [phone] | | | +--------+ + + + [...] | + + + + + | [facility] | [address] | [place] [address] | | | PATHOLOGY | [address] | | | + + + + + | [facility] | [address] | [place] [address] | | | PATHOLOGY | [address] [...] DEPARTMENT | | | | [place] [address] | | OF | | | | | | PATHOLOGY | | + + + + + + + + | Specimen | + + | | + + + + + + + | Performing | Address | City/State/Zipcode | Phone Number | | Organization | | | | + + + + + | [facility] DEPARTMENT OF | [address] | [place] [address] | | | PATHOLOGY | [address] | | | + + + + + | [facility] DEPARTMENT OF | [address] | [place] [address] | | | PATHOLOGY | [address] [...] DEPARTMENT OF | [address] | [place] [address] | | | PATHOLOGY | [address] | | | + + + + + | [facility] | [address] | [place] [address] | | | PATHOLOGY | [address] [...] [facility] | [address] | [place], [place] | | | [facility] | | [address] | | + + + + + [...] | | + +---------+ + + | [facility] DEPARTMENT OF | | | | | RADIOLOGY | | | | + +---------+ + + documented in this encounter Visit Diagnoses Not on filedocumented in this encounter"
--- OUTSIDE RECORDS SUMMARY | ~2019-12-02 | XMS | Clinical Summary ---
Demographics + + + | Address | [address] | | | [place] [address] | + + + | Home Phone | | + + + | Preferred Language | Unknown | + + + | Marital Status | Legally | + + + | Caodaism Affiliation | Unknown | + + + | Race | Unknown | + + + | Ethnic Group | Unknown | + + + Author + + + | Author | [facility] | | | and [place] | + + + | Organization | [facility] | | | and [...] Team Providers + +------+ + | Care Hoop Punch And Coiler Operator Name | Role | Phone | [...] + + +---------+------+------+-------+ | Uncoded Medication | [id number] | 1 | 0 | 05/0 | | Activ | | | Pillows cushion or | Device | | 6/20 | | e | | | nasal mask cushion | | | 14 | | | | | (up to 2 per month); | | | | | | | | [id number] | | | | | | | [...] | [employer] | [employer] | [id number] | 12/15/19 | [phone] | | [employer] | | MEDICAID HMO [...] | | al/Fam | | 7 | [phone] | [place] | | | petra | | | 7 (Home) | [address] | | | | | | [phone] | | | | | | | 3 (Work) | | + +--------+ +--------+ + + Advance Directives + + + + + | Type | Date Recorded | Patient | Explanation | | | | Wharf Laborer | | + + + + + | Power of | | | | | Environmental Field Technician | | | | + + + + + | Advance | | | | | Directive | | | | + + + + +
--- OUTSIDE RECORDS SUMMARY | ~2019-12-02 | XMS | Encounter Summary ---
Demographics + + + | Address | [address] | | | [place] [address] | + + + | Home Phone | | + + + | Preferred Language | Unknown | + + + | Marital Status | Single | + + + | Sabianism Affiliation | NON | + + + [...] [place] | | | | | [address] | | + + + + + Care Team Providers + +------+ + | Care Community Planner Name | Role | Phone | [...] | | | | Medicine at | [facility] | | | | | [facility] | [place] [address] | | | | | [address] | [phone] | | | | | [facility] | | | | | | [place], [address] Floor | | | | | | [place], [place] | | | | | | [address] | | | | | | [phone] | | | +--------+ + + + [...]
--- OUTSIDE RECORDS SUMMARY | ~2019-12-02 | XMS | Clinical Summary ---
Demographics + + + | Address | [address] | | | [place] [address] | + + + | Home Phone | | + + + | Preferred Language | Unknown | + + + | Marital Status | Single | + + + | Christian Affiliation | NON | + + + [...] [place] | | | | | [address] | | + + + + + Care Team Providers + +------+ + | Care Health And Fitness Professor Name | Role | Phone | + +------+ + PCP | Unavailable | + +------+ + Source Comments [facility] is fully live on both [facility] and [facility] Allergies + + + + + [...]
--- OUTSIDE RECORDS SUMMARY | ~2019-12-02 | XMS | Encounter Summary ---
Demographics + + + | Address | [address] | | | [place] [address] | + + + | Home Phone | | + + + | Preferred Language | Unknown | + + + | Marital Status | Single | + + + | Gnosticist Affiliation | NON | + + + [...] [place] | | | | | [address] | | + + + + + Care Team Providers + +------+ + | Care Furnace Combustion Tester Name | Role | Phone | [...] [place] | Clinic | | | | [place] | [address] | | | | | | [place], [place] | | | | | | [address] | | | +--------+ + + + [...] as of this encounter Progress Notes Interface, Communications Professional In - 12/24/2006 2:33 AM PDT [id number] NITA Blair 156151 Clinic Date: 12/12/2006 Clinic: TELEPHONE CONVERSATION I [...] the appointment. Emelina Wilder M.D. / BEREKET [id number] / [id number] / [id number] / cc: Froy Daigle M.D. [address] [place] [address] FAX: [phone] Akbar Mendoza M.D. Electronically signed by Emelina Wilder 12-23-2006 07:11:11 AM documented in this encounter Plan of Treatment Not on filedocumented as of this encounter Visit Diagnoses Not on filedocumented in this encounter"
[~2019-12-02 19:32] MED LIST: ABILIFY5 MG PO; ALL DAY ALLERGY10 M1 PO; METHOCARBAMOL750 MG PO; MOBIC15 MG PO; NORCO 5-325 TA1 EACH PO; OMEPRAZOLE40 MG PO
--- OUTSIDE RECORDS SUMMARY | 2019-12-02 19:36 | XMS ---
PreManage Notification: TRINA BATISTA Security Med Care Manager Events No recent Security Events currently on file [facility] There are no care providers on record at this time. John has no Care Guidelines for this patient. Kasandra VISIT COUNT (12 MO.) 1 WENDY Nye TOTAL 1 NOTE: Visits indicate total known visits. ED/UCC VISIT TRACKING (12 MO.) 12/02/2019 19:33 WENDY Fernandez [place] TYPE: Emergency COMPLAINT: - FALL INPATIENT VISIT TRACKING (12 MO.) No inpatient visits to display in this time frame [id number]
[2019-12-02] MEDS ORDERED: LEVOTHYROXINE125 MCG PO (20:44)
[2019-12-02] MEDS ORDERED: ALENDRONATE SOD70 MG (20:44)
[2019-12-02] MEDS ORDERED: GLUCOPHAGE500 MG PO (20:45)
[2019-12-02] MEDS ORDERED: ULTRAM50 MG PO (21:11)
[2019-12-02] MEDS ORDERED: CYCLOBENZAPRINE10 MG PO (21:11)
== END 2019-12-02 21:23 | disposition home or self-care (01) ==
LOC: ED 19:32
DX: S39.012A Strain of muscle, fascia and tendon of lower back, initial encounter (principal); I10 Essential (primary) hypertension; Z87.891 Personal history of nicotine dependence; Z88.0 Allergy status to penicillin; Z88.5 Allergy status to narcotic agent; Z79.899 Other long term (current) drug therapy; W18.30XA Fall on same level, unspecified, initial encounter
CPT/HCPCS: 90471; 90715; 99283-25

== ENCOUNTER 2021-10-09 22:03 | Emergency (ER) | payer OTHER ==
[~2021-10-09] VITALS: Ht 157.5 cm; Wt 92.0 kg
[~2021-10-09 22:03] MED LIST changes: +ALENDRONATE SOD70 MG; +CYCLOBENZAPRINE10 MG PO; +GLUCOPHAGE500 MG PO; +LEVOTHYROXINE125 MCG PO; +ULTRAM50 MG PO
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
[2021-10-09] MEDS ORDERED: ALLOPURINOL100 MG PO (22:25)
[2021-10-09] MEDS ORDERED: VITAMIN D3125 MCG PO (22:26)
[2021-10-09] MEDS ORDERED: DICLOFENAC35 MG PO (22:26)
== END 2021-10-10 01:51 | disposition home or self-care (01) ==
LOC: ED 22:03
DX: S01.81XA Laceration without foreign body of other part of head, initial encounter (principal); I10 Essential (primary) hypertension; R73.03 Prediabetes; Z87.891 Personal history of nicotine dependence; Z88.0 Allergy status to penicillin; Z88.5 Allergy status to narcotic agent; Z88.8 Allergy status to other drugs, medicaments and biological substances; Z79.899 Other long term (current) drug therapy; Z79.84 Long term (current) use of oral hypoglycemic drugs; X99.1XXA Assault by knife, initial encounter
CPT/HCPCS: 12013; 90471; 90715; 99282-25

== ENCOUNTER 2023-03-29 13:34 | Emergency (ER) | payer MEDICARE, OTHER ==
[~2023-03-29] VITALS: Ht 157.5 cm; Wt 90.7 kg
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
--- OUTSIDE RECORDS SUMMARY | ~2023-03-29 | XMS | Continuity of Care Document ---
Demographics + + + | Address | [address] | | | [place] [address] | + + + | Preferred Language | Unknown | + + + | Marital Status | Never | + + + | Muslim Affiliation | Unknown | + + + | Race | White | + + + | Ethnic Group | Not or | + + + Author + + + | Author | [place] | + + + | Organization | [place] | + + + | Address | [address] | | | [place] [address] | + + + | Phone | | + + + Care Team Providers + + + + | Care Automotive Sales Manager Name | Role | Phone | [...] | 2019-12-02 00:00 | [facility] | + + + + | 2021-10-10 00:00 | Tdap | [facility] | + + + + | 2023-02-09 00:00 | Tdap | [facility] | + + + + Medications + + + + | date | description | facility | + + + + | 2023-02-09 00:00 | Diclofenac Submicronized | [facility] | + + + + | 2023-02-09 00:00 | MELOXICAM | [facility] | + + + + | 2023-02-09 00:00 | ALLOPURINOL | [facility] | + + + + | 2023-02-09 00:00 | METHOCARBAMOL | [facility] | + + + + | 2023-02-09 00:00 | OMEPRAZOLE | [facility] | + + + + | 2023-02-09 00:00 | ARIPIPRAZOLE | [facility] | + + + + | 2019-12-02 00:00 | CYCLOBENZAPRINE HCL | [facility] | + + + + | 2019-12-02 00:00 | TRAMADOL HCL | [facility] | + + + + | 2013-10-08 00:00 | HYDROCODONE | [facility] | | | BIT/ACETAMINOPHEN | | + + + + | 2023-02-09 00:00 | Cholecalciferol (Vitamin | [facility] | | | D3) | | + + + + | 2023-02-09 00:00 | metFORMIN HCL | [facility] | + + + + | 2023-02-09 00:00 | ALENDRONATE SODIUM | [facility] | + + + + | 2023-02-09 00:00 | LEVOTHYROXINE SODIUM | [facility] | + + + + Problems + + + + | date | description | facility | + + + + | 2019-12-02 00:00 | Acute myofascial strain of | [facility] | | | lumbar region | | + + + + | 2021-10-10 00:00 | Laceration of forehead | [facility] | + + + + | 2021-10-10 00:00 | Laceration of left facial | [facility] | | | nerve | | + + + + | 2023-02-09 00:00 | Laceration | [facility] | + + + + | 2023-02-09 [...] + + | 2023-02-09 01:12 | OTHER RESIDENTIAL (CURRENT) | [facility] | | | DRUG [...]
[~2023-03-29 13:34] MED LIST changes: +ALLOPURINOL100 MG PO; +DICLOFENAC35 MG PO; +VITAMIN D3125 MCG PO
[2023-03-29] MEDS ORDERED: METFORMIN HCL1000 MG PO (13:53)
[2023-03-29] MEDS ORDERED: MAXITROL EYE DRO5 ML OPTH (15:17)
[2023-03-29 15:33] VITALS: BP 156/94
== END 2023-03-29 15:35 | disposition home or self-care (01) ==
LOC: ED 13:34
DX: S05.02XA Injury of conjunctiva and corneal abrasion without foreign body, left eye, initial encounter (principal); X58.XXXA Exposure to other specified factors, initial encounter; H11.422 Conjunctival edema, left eye; I10 Essential (primary) hypertension; E11.9 Type 2 diabetes mellitus without complications; K21.9 Gastro-esophageal reflux disease without esophagitis; Z87.891 Personal history of nicotine dependence; Z88.0 Allergy status to penicillin; Z88.5 Allergy status to narcotic agent; Z88.2 Allergy status to sulfonamides; Z88.1 Allergy status to other antibiotic agents; Z79.899 Other long term (current) drug therapy; Z79.84 Long term (current) use of oral hypoglycemic drugs
CPT/HCPCS: 99283

== ENCOUNTER 2024-04-18 02:21 | Emergency (ER) | payer MEDICARE, OTHER ==
[~2024-04-18] VITALS: Ht 157.5 cm; Wt 94.1 kg
[~2024-04-18 02:21] MED LIST changes: +MAXITROL EYE DRO5 ML OPTH; +METFORMIN HCL1000 MG PO
[2024-04-18] MEDS ORDERED: MORPHINE SULFATE 4 MG/ML VIAL IV PRN (02:30)
[2024-04-18] MEDS ORDERED: NITROGLYCERIN 0.4 MG SUBL SL PRN (02:30)
[2024-04-18] MEDS ORDERED: ondansetron HCL 4 MG/2 ML VIAL IV ONE (02:30)
[2024-04-18 02:32] LABS: BASOPHILS 1.1 % (0-2); EOSINOPHILS 4.1 % (0-6); HEMATOCRIT 43.7 % (35.0-50.0); HEMOGLOBIN 14.3 g/dL (12.0-18.0); LYMPHOCYTES 27.8 % (24-44); MCH 27.9 (27-36); MCHC 32.8 g/dl (30-36); MCV 85.2 fl (81-99); MONOCYTES 6.1 % (0-12); NEUTROPHILS 60.9 % (39-80); PLATELET COUNT 298 K/uL (140-440); RBC 5.13 M/ul (4.3-5.7); RDW 15.1 (10.5-15.0)
[2024-04-18] MEDS ORDERED: FAMOTIDINE 20 MG/ 2 ML VIAL IV ONE (02:45)
[2024-04-18 02:49] LABS: ALBUMIN 3.3 g/dL (3.4-5.0); ALBUMIN/GLOBULIN RATIO 0.75 (1.1-2.4); ANION GAP 10.9 (7-21); BILIRUBIN, TOTAL 0.4 ng/dL (0.2-1.0); BUN/CREATININE RATIO 12.74 (6.0-28.6); CALCIUM 9.8 mg/dL (8.5-10.1); CREATININE, SERUM 1.02 mg/dL (0.55-1.02); MAGNESIUM 1.7 mg/dL (1.8-2.4); POTASSIUM 3.9 mmol/L (3.5-5.1); PROTEIN, TOTAL 7.7 g/dL (6.4-8.2)
[2024-04-18] MEDS ORDERED: CARAFATE1 GM/10 ML PO (04:50)
[2024-04-18 05:00] VITALS: BP 142/90
[2024-04-18] MEDS ORDERED: SUCRALFATE 1 GM TAB PO ONE (05:00)
--- NOTE | 2024-04-18 18:45 | EKG ---
[facility] [address] [place] [address] Signed Normal sinus rhythm with sinus arrhythmia Normal ECG No previous ECGs available Confirmed by Ofelia Espinosa MD ([id number]) on 04/18/2024 6:45:20 PM Electronically Signed By: OFELIA ESPINOSA MD 04/18/24 1845 PATIENT NAME: TRINA BATISTA Electrocardiogram DATE OF : 59 PHYSICIAN: OFELIA ESPINOSA MD REPORT #: [id number] REPORT IS CONFIDENTIAL AND NOT TO BE RELEASED WITHOUT AUTHORIZATION
== END 2024-04-18 05:00 | disposition home or self-care (01) ==
LOC: ED 02:21
PROVIDERS: Internal Medicine
DX: R07.89 Other chest pain (principal); K21.9 Gastro-esophageal reflux disease without esophagitis; K44.9 Diaphragmatic hernia without obstruction or gangrene; K57.30 Diverticulosis of large intestine without perforation or abscess without bleeding; E11.9 Type 2 diabetes mellitus without complications; I10 Essential (primary) hypertension; M10.9 Gout, unspecified; E03.9 Hypothyroidism, unspecified; M06.9 Rheumatoid arthritis, unspecified; Z87.891 Personal history of nicotine dependence; Z88.5 Allergy status to narcotic agent; Z88.0 Allergy status to penicillin; Z88.2 Allergy status to sulfonamides; Z88.4 Allergy status to anesthetic agent; Z88.1 Allergy status to other antibiotic agents; Z79.890 Hormone replacement therapy; Z79.1 Long term (current) use of non-steroidal anti-inflammatories (NSAID); Z79.899 Other long term (current) drug therapy
CPT/HCPCS: 36415; 71045; 71275; 74174; 80053; 83735; 83880; 84484; 85025; 85379; 93005; 93010; 99285-25; J2405; Q9967

== ENCOUNTER 2024-10-19 23:12 | Emergency (ER) | payer OTHER, MEDICARE ==
[~2024-10-19] VITALS: Ht 157.5 cm; Wt 99.0 kg
[~2024-10-19 23:12] MED LIST changes: +CARAFATE1 GM/10 ML PO
[2024-10-19] MEDS ORDERED: KETOROLAC TROMETHAMINE 60 MG/2 ML VIAL IM ONE (23:30)
[2024-10-19] MEDS ORDERED: diazePAM 10 MG/2 ML SYR IM ONE (23:30)
[2024-10-20] MEDS ORDERED: CELEBREX100 MG PO (00:03)
[2024-10-20] MEDS ORDERED: TRAMADOL HCL50 MG PO (00:03)
[2024-10-20] MEDS ORDERED: TRAMADOL HCL 50 MG HOME.PACK PO ONE (00:15)
[2024-10-20 00:53] VITALS: BP 151/85
== END 2024-10-20 00:40 | disposition home or self-care (01) ==
LOC: ED 23:12
DX: S83.92XA Sprain of unspecified site of left knee, initial encounter (principal); I10 Essential (primary) hypertension; E11.9 Type 2 diabetes mellitus without complications; M10.9 Gout, unspecified; M06.9 Rheumatoid arthritis, unspecified; E07.9 Disorder of thyroid, unspecified; K21.9 Gastro-esophageal reflux disease without esophagitis; Z88.5 Allergy status to narcotic agent; Z88.0 Allergy status to penicillin; Z88.2 Allergy status to sulfonamides; Z88.1 Allergy status to other antibiotic agents; Z88.8 Allergy status to other drugs, medicaments and biological substances; Z79.890 Hormone replacement therapy; Z79.899 Other long term (current) drug therapy; W01.0XXA Fall on same level from slipping, tripping and stumbling without subsequent striking against object, initial encounter
CPT/HCPCS: 73560; 96372; 99283; A9270; J1885